=== PATIENT | female | born 1965 | race Two or more races ===

== ENCOUNTER 2025-05-19 21:01 | Inpatient (IN) | payer MEDICAID ==
[~2025-05-19] VITALS: Ht 152.4 cm; Wt 57.0 kg
[~2025-05-19 21:01] MED LIST: LOVA10TA54 PO; METF-372 PO
[2025-05-19 21:45] VITALS: PULSE 80; RESP 15; O2SAT 99
[2025-05-19] MEDS: SODIUM CHLORIDE 0.9% 2,000 ML IV ONE (22:09)
[2025-05-19] MEDS: InsuLIN REG 1unit/0.01ml Soln (100units/ml) IV ONE (22:19)
[2025-05-19 22:21] LABS: Base Excess 3.4 mmol/L (-2.0-3.0)
[2025-05-19 22:29] LABS: Hematocrit 35.5 % (36.0-46.0); Hemoglobin 11.6 g/dL (12.2-16.2); Mean Corpuscular Hemoglobin 29.7 pg (28.0-32.0); Mean Corpuscular Volume 91.0 fL (80.0-100.0); Nucleated Red Blood Cells % 0.1 %
[2025-05-19 22:45] LABS: Alanine Aminotransferase 26 U/L (7-40); Albumin 3.5 g/dL (3.2-4.8); Anion Gap 9 (5-15); BUN/Creatinine Ratio 13.5 (10.0-20.0); Blood Urea Nitrogen 17 mg/dL (9-23); Carbon Dioxide 25 mmol/L (20-31); Potassium 4.3 mmol/L (3.5-5.1); Total Protein 6.6 g/dL (5.7-8.2)
--- NOTE | 2025-05-19 22:49 | ED.PDOC ---
Musculoskeletal HPI Comments 65 y/o F is BIBA from private residence for c/c of 1x week history of worsening left foot pain, with associated redness and swelling. Patient has multiple comorbidities, including DM, HLD, HTN, fatty liver disease, PUD, seizures, hypothyroidism, and alcohol abuse. She reports onset of symptoms after wearing a new pair of shoes a week prior to onset. Unable to bear weight on left foot due to the pain. Patient also reports history of diabetic ulcer wound to the bottom of her foot and not taking any medications for her DM, currently. No chest pain, shortness of breath, fever, chills, or further associated symptoms. Per EMS report, patient was found with 2x initial blood glucose readings of "HI". Chief Complaint: Hyperglycemia Time Seen by MD: 21:50 Primary Care Provider: DR. CERDA Reviewed Notes: Nurses Notes, Process Control Board Operator Notes, Medications, Allergies Allergies: Coded Allergies: NO KNOWN ALLERGIES (Unverified , 01/22/13) Home Meds Reported Medications Lovastatin (Lovastatin) 10 Mg Tab, 10 MG PO QDAC 04/02/13 Metformin Hydrochloride (Metformin Hcl) 1,000 Mg Tab, 1000 MG PO QDAC 04/02/13 Information Source: Patient, Emergency Med Personnel Mode of Arrival: EMS Location: Left Extremity Location: Foot Timing: Hours Prehospital treatment: 12 Lead EKG, Accucheck, Band Attacher Severity: Moderate Able to Move Extremity: Yes Bear Weight: No Pain: Moderate Past Medical History PAST MEDICAL HISTORY: DM, High Lipids, HTN, Liver (fatty and alcohol liver disease ), PUD, Seizures, Thyroid (hypothyroidism ) Past Medical History (Other): thrombocytopenia Surgical History: , 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 Dry mucous membranes.) Neck: Full Range of Motion, Normal Inspection Respiratory: Lungs Clear, No Accessory Muscle Use, No Respiratory Distress, Normal Breath Sounds Cardiovascular: No JVD, Regular Rate/Rhythm Breast Exam: Deferred Gastrointestinal: Non Tender, Soft Genitalia: Deferred Pelvic: Deferred Rectal: Deferred Extremities: Swelling, Tender, Other (Left foot soft tissue tenderness and swelling with patchy erythema. Approximate 8 x 5 cm plantar wound with patchy necrosis and surrounding erythema. No fluctuance or discharge. Subcentimeter scabbed ulcerative lesions on the plantar MTP area and 3rd toe.) Neurologic: Alert (Oriented x4), Other (No gross focal deficit) Cerebellar Function: NOT DONE Reflexes: NOT DONE Skin: Dry, Warm Lymphatic: NOT DONE Was a procedure done? Was a procedure done?: No Differential Diagnosis EXT Differential Diagnosis: Cellulitis, Septic, Other (infected diabetic wound , osteomyelitis) Other Differential Diagnosis hyperglycemia, DKA, hyperosmolar hyperglycemic state, among others X-Ray, Labs, Meds, VS Vital Signs Date Time Temp Pulse Resp B/P (MAP) Pulse Ox O2 Delivery O2 Flow Rate FiO2 05/19/25 23:34 73 14 99/55 (70) 100 05/19/25 22:33 77 05/19/25 21:45 80 15 99 Nasal Cannula* 2 28 05/19/25 21:45 98.2 80 15 104/62 (76) 99 98.2 05/19/25 21:18 99.1 68 22 97/64 98 99.1 Lab Test 05/20/25 01:20 05/19/25 23:10 05/19/25 22:15 05/19/25 22:10 Range/Units Urine Color Colorless Yellow Urine Clarity Clear Clear Urine pH 5.5 5.0-9.0 Urine Specific [place] 1.025 1.001-1.035 Urine Protein Negative Negative Urine Ketones Negative Negative Urine Blood Negative Negative /uL Urine Nitrite Negative Negative Urine Bilirubin Negative Negative Urine Urobilinogen Normal Negative mg/dL Urine Leukocyte Esterase Negative Negative /uL Urine RBC 1 0 - 4 /hpf Urine Microscopic WBC < 1 0-5 /HPF Urine Squamous Epithelial Cells None seen <5 /hpf Urine Bacteria None seen None Seen /hpf Urine Glucose 4+ H Normal mg/dL Troponin I High Sensitivity < 3 L </=34 ng/L POC Glucose > 600 *H 70-106 mg/dl Blood Gas Specimen Type Arterial Blood Gas Sample Site Right radial Blood Gas Patient Temperature 37.0 Arterial Blood Date Drawn [id number] Arterial Blood pH 7.519 H 7.350-7.450 Arterial Blood Partial Pressure CO2 32.5 32.0-45.0 mmHg Arterial Blood Partial Pressure O2 125.7 H 83.0-108.0 mmHg Arterial Blood HCO3 25.9 21.0-28.0 mmol/L Arterial Blood Oxygen Saturation 98.8 H 94.0-98.0 % Arterial Blood Base Excess 3.4 H -2.0-3.0 mmol/L Arterial Blood Oxyhemoglobin 97.4 94.0-98.0 % Arterial Blood Carboxyhemoglobin 0.9 0.5-1.5 % Arterial Blood Methemoglobin 0.5 0.0-1.5 % Vic Test Modified Blood Gas Total Hemoglobin 12.30 12.0-16.0 g/dL Blood Gas Liter Flow 2.00 Blood Gas Modality Nasal cannula FiO2 % 28.0 Test 05/19/25 22:09 Range/Units White Blood Count 12.0 H 4.4-10.8 10^3/uL Red Blood Count 3.90 L 4.0-5.20 10^6/uL Hemoglobin 11.6 L 12.2-16.2 g/dL Hematocrit 35.5 L 36.0-46.0 % Mean Corpuscular Volume 91.0 80.0-100.0 fL Mean Corpuscular Hemoglobin 29.7 28.0-32.0 pg Mean Corpuscular Hemoglobin Concent 32.6 32.0-36.0 g/dL Red Cell Distribution Width 12.9 11.8-14.3 % Platelet Count 261 140-450 10^3/uL Mean Platelet Volume 8.6 6.9-10.8 fL Neutrophils (%) (Auto) 86.9 H 37.0-80.0 % Lymphocytes (%) (Auto) 8.0 L 10.0-50.0 % Monocytes (%) (Auto) 4.4 0.0-12.0 % Eosinophils (%) (Auto) 0.5 0.0-7.0 % Basophils (%) (Auto) 0.2 0.0-2.0 % Neutrophils # (Auto) 10.4 H 1.6-8.6 10 ^3/uL Lymphocytes # (Auto) 1.0 0.4-5.4 10 ^3/uL Monocytes # (Auto) 0.5 0-1.3 10 ^3/uL Eosinophils # (Auto) 0.1 0-0.8 10 ^3/uL Basophils # (Auto) 0 0-0.2 10 ^3/uL Nucleated Red Blood Cells 0.1 % Sodium Level 124 L 136-145 mmol/L Potassium Level 4.3 3.5-5.1 mmol/L Chloride Level 90 L 98-107 mmol/L Carbon Dioxide Level 25 20-31 mmol/L Anion Gap 9 5-15 Blood Urea Nitrogen 17 9-23 mg/dL Creatinine 1.26 H 0.550-1.02 mg/dL Glomerular Filtration Rate Calc 48 >90 mL/min BUN/Creatinine Ratio 13.5 10.0-20.0 Serum Glucose 804 *H 74-106 mg/dL Calcium Level 8.4 L 8.7-10.4 mg/dL Total Bilirubin 0.2 0.2-1.0 mg/dL Aspartate Amino Transferase (AST) 26 13-40 U/L Alanine Aminotransferase (ALT) 26 7-40 U/L Alkaline Phosphatase 252 H 46-116 U/L Troponin I High Sensitivity 4 </=34 ng/L B-Type Natriuretic Peptide 148.99 0-100 pg/mL Total Protein 6.6 5.7-8.2 g/dL Albumin 3.5 3.2-4.8 g/dL Beta-Hydroxybutyric Acid 0.256 < 0.4 mmol/L Current Medications Medications (Trade) Dose Ordered Sig/Sean Route Start Time Stop Time Status Last Admin Sodium Chloride 2,000 ml @ 1,000 mls/hr Q2H ONCE IV 05/19/25 22:00 05/19/25 23:59 DC 05/19/25 22:09 Insulin Human Regular (InsuLIN R) 4 units ONCE ONCE IV 05/19/25 22:00 05/19/25 22:01 DC 05/19/25 22:19 PROCEDURE(s): CXRP - CHEST PORTABLE REASON: hyperglycemia ORDER NUMBER(s): [id number], ACCESSION NUMBER(s): [id number] CHEST RADIOGRAPH Indication: hyperglycemia Technique: 1 view Comparison: None FINDINGS: Lines and Tubes: None Lungs: Focal left basilar nodular/consolidative opacity near the costophrenic angle. Pleura: No effusion or pneumothorax. Cardiomediastinal contours: Unremarkable. Bones: No acute osseous abnormality. IMPRESSION: 1. A small focal left basilar airspace disease may represent summation of structures, early or mild infection, or other etiology suggest pulmonary nodule or rib lesion. EDURE(s): LFOOT - L FOOT 3 VIEW XRAY REASON: cellulitis ORDER NUMBER(s): [id number], ACCESSION NUMBER(s): [id number] EXAM: XY L FOOT 3 VIEW XRAY REASON FOR EXAM: cellulitis TECHNIQUE: AP, lateral, and oblique views of the left foot are submitted for review. COMPARISON: None FINDINGS: There is no acute fracture or dislocation. There is subtle erosion at the ventral medial aspect of the proximal metaphysis of the 2nd proximal phalanx concerning for osteomyelitis. There is severe diffuse soft tissue swelling about the forefoot. IMPRESSION: Diffuse forefoot soft tissue swelling with possible erosion at the base of the 2nd proximal phalanx concerning for osteomyelitis. Recommend MRI of the forefo ot. X-Ray, Labs, Meds, VS Comment 65-year-old female with history of DM, HLD, HTN, fatty liver disease, PUD, seizures, hypothyroidism, and alcohol abuse complaining of left foot pain and found to be hyperglycemic Vitals remarkable for respiratory rate 22 Exam remarkable for Left foot soft tissue tenderness and swelling with patchy erythema. Approximate 8 x 5 cm plantar wound with patchy necrosis and surr ounding erythema. No fluctuance or discharge. Subcentimeter scabbed ulcerative lesions on the plantar MTP area and 3rd toe. Rhythm strip independently interpreted by me: Sinus rhythm, rate 68, no ectopy. Chest x-ray IMPRESSION: 1. A small focal left basilar airspace disease may represent summation of structures, early or mild infection, or other etiology suggest pulmonary nodule or rib lesion. Left foot x-ray IMPRESSION: Diffuse forefoot soft tissue swelling with possible erosion at the base of the 2nd proximal phalanx concerning for osteomyelitis. Recommend MRI of the forefoot. CBC remarkable for WBC 12, metabolic panel remarkable for sodium 124, chloride 90, glucose 804, anion gap normal, beta hydroxybutyrate normal, UA positive for glucose Patient treated with the following in the ED: 1 L 0.9 normal saline IV bolus, regular insulin 4 units IV, started on insulin drip protocol, 30 cc/kilogram LR bolus, cefepime 2 g IV, vancomycin per pharmacy IV On re-evaluation, blood glucose is still greater than 600. Patient is resting comfortably with otherwise stable vitals. Plan is to admit the patient for IV antibiotics, glucose control, foot MRI to rule out osteomyelitis. Time of 1ST Reevaluation: 22:20 Reevaluation 1ST: Unchanged Patient Education/Counseling: Diagnosis, Treatment, Other (need for admission ) Family Education/Counseling: No Family Present Departure 1 Departure Time of Disposition: 02:30 Impression: Primary Impression: Hyperglycemia Additional Impression: Cellulitis of left foot Disposition: 09 ADMITTED INPATIENT Admit to: Tele Condition: Guarded Critical Care Note Critical Care Time?: Yes (45 min-critical care time only) Critical care comment: Critical care time including multiple bedside re-evaluations, review of lab and imaging studies, and discussion of the case with the admitting provider. Patient is high risk for metabolic decompensation. Stability Stability form required: No Heart Score Heart Score: Heart Score Response (Comments) Value History N/A 0 EKG N/A 0 Age N/A 0 Risk Factors N/A 0 Troponin N/A 0 Total 0 I personally scribed for ERICH DOUGLAS MD ([email or web address]) on 05/19/25 at 22:49. Electronically submitted by Fransisco Moffett ([email or web address]). I personally scribed for ERICH DOUGLAS MD ([email or web address]) on 05/19/25 at 23:07. Electronically submitted by Fransisco Moffett ([email or web address]). ERICH DOUGLAS MD May 19, 2025 22:49
[2025-05-19 22:54] LABS: Alkaline Phosphatase 252 U/L (46-116); Bilirubin, Total 0.2 mg/dL (0.2-1.0); Calcium 8.4 mg/dL (8.7-10.4); Chloride 90 mmol/L (98-107); Sodium 124 mmol/L (136-145)
[2025-05-19 22:56] LABS: Glucose 804 mg/dL (74-106)
--- NOTE | 2025-05-19 23:41 | DVH ---
EXAM: XY L FOOT 3 VIEW XRAY REASON FOR EXAM: cellulitis TECHNIQUE: AP, lateral, and oblique views of the left foot are submitted for review. COMPARISON: None FINDINGS: There is no acute fracture or dislocation. There is subtle erosion at the ventral medial as pect of the proximal metaphysis of the 2nd proximal phalanx concerning for osteomyelitis. There is se cody diffuse soft tissue swelling about the forefoot. IMPRESSION: Diffuse forefoot soft tissue swelling with possible erosion at the base of the 2nd proximal phalanx c oncerning for osteomyelitis. Recommend MRI of the forefoot.
--- NOTE | 2025-05-19 23:41 | DVH ---
CHEST RADIOGRAPH Indication: hyperglycemia Technique: 1 view Comparison: None FINDINGS: Lines and Tubes: None Lungs: Focal left basilar nodular/consolidative opacity near the costophrenic angle. Pleura: No effusion or pneumothorax. Cardiomediastinal contours: Unremarkable. Bones: No acute osseous abnormality. IMPRESSION: 1. A small focal left basilar airspace disease may represent summation of structures, early or mild i nfection, or other etiology suggest pulmonary nodule or rib lesion.
[2025-05-20 02:30] LABS: Urine Protein, UAD Negative (Negative)
[2025-05-20] MEDS ORDERED: DEXTROSE (50%) 50ML SYRG IV PRN ×3 (03:15→09:00)
[2025-05-20] MEDS ORDERED: INSULIN DRIP 100 UNIT/100ML 100 ML IV SCH (03:15)
--- NOTE | 2025-05-20 03:25 | DVHHPRES ---
History of Present Illness Resident Creating Document: ETHAN GRUBER RESIDENT History of Present Illness 62-year-old female with uncontrolled diabetes mellitus, seizure disorder, hypertension, scoliosis presents to the ER with excruciating back and left foot pain. She reports having a swelling on the left food since last 1 week. She was not able to pass urine, and a Valenzuela catheter was placed in the hospital which relieved her urine retention. The patient feels like dying out of pain. She denies any chest pain, shortness of breath, fever, abdominal pain or any other complaints. The unbearable pain was impairing patient's ability to provide detailed history. Past medical history: Hypertension, diabetes mellitus, scoliosis, seizure disorder Past surgical history: Abdominal surgery due to stomach ulcers, surgery in the under arm Alcohol: Beer and vodka in the past Smoke: Never Drug abuse: Never Medications: Insulin for diabetes, could not recall the antihypertensive drug Allergies: None Code status: Full code PCP:? Review of Systems Review of Systems Patient was seen and examined at the bedside. Patient reports back pain and left foot pain, no other complaints reported. Rest of the ROS is negative. Allergies: Coded Allergies: NO KNOWN ALLERGIES (Unverified , 01/22/13) Medications Current Medications Medications Dose Ordered Sig/Sean Route Start Time Stop Time Status Last Admin Dose Admin Insulin Human (Reg)/Sodium Chloride 100 ml @ 0.5 mls/hr Q24H IV 05/20/25 03:15 Diagnostic Test (Pha) 1 strip Q90MIN 05/20/25 04:30 Dextrose 50 ml PRN PRN IV 05/20/25 03:15 Cefepime HCl 50 ml @ 12.5 mls/hr Q8HR IV 05/20/25 06:00 Exam Vital Signs Vital Signs Date Time Temp Pulse Resp B/P (MAP) Pulse Ox O2 Delivery O2 Flow Rate FiO2 05/19/25 23:34 73 14 99/55 (70) 100 05/19/25 21:45 Nasal Cannula* 2 28 05/19/25 21:45 98.2 98.2 Exam Pt is lying on bed General Appearance: Alert, Oriented X3, Cooperative, Mild distress HEENT: Atraumatic, Mucous membranes moist/pink Respiratory: Clear to auscultation, Normal air movement, No added sounds Cardiovascular: Regular rate, Normal S1, Normal S2, No murmurs Abdominal/ : Active bowel sounds, Soft, no distention, no tenderness Extremities: Left foot swelling with redness and blister on the great toe, Normal pulses, No tenderness/swelling Skin: No Significant rash, except past surgical scars Neuro: Normal speech, sensorimotor deficits none Psych/Mental Status: Mental status NL, Mood NL Nurse was there as neon electrician during examination Labs/Xrays Labs Test 05/20/25 01:20 05/19/25 23:10 05/19/25 22:15 05/19/25 22:10 Range/Units Urine Color Colorless Yellow Urine Clarity Clear Clear Urine pH 5.5 5.0-9.0 Urine Specific [place] 1.025 1.001-1.035 Urine Protein Negative Negative Urine Ketones Negative Negative Urine Blood Negative Negative /uL Urine Nitrite Negative Negative Urine Bilirubin Negative Negative Urine Urobilinogen Normal Negative mg/dL Urine Leukocyte Esterase Negative Negative /uL Urine RBC 1 0 - 4 /hpf Urine Microscopic WBC < 1 0-5 /HPF Urine Squamous Epithelial Cells None seen <5 /hpf Urine Bacteria None seen None Seen /hpf Urine Glucose 4+ H Normal mg/dL Troponin I High Sensitivity < 3 L </=34 ng/L POC Glucose > 600 *H 70-106 mg/dl Blood Gas Specimen Type Arterial Blood Gas Sample Site Right radial Blood Gas Patient Temperature 37.0 Arterial Blood Date Drawn [id number] Arterial Blood pH 7.519 H 7.350-7.450 Arterial Blood Partial Pressure CO2 32.5 32.0-45.0 mmHg Arterial Blood Partial Pressure O2 125.7 H 83.0-108.0 mmHg Arterial Blood HCO3 25.9 21.0-28.0 mmol/L Arterial Blood Oxygen Saturation 98.8 H 94.0-98.0 % Arterial Blood Base Excess 3.4 H -2.0-3.0 mmol/L Arterial Blood Oxyhemoglobin 97.4 94.0-98.0 % Arterial Blood Carboxyhemoglobin 0.9 0.5-1.5 % Arterial Blood Methemoglobin 0.5 0.0-1.5 % Vic Test Modified Blood Gas Total Hemoglobin 12.30 12.0-16.0 g/dL Blood Gas Liter Flow 2.00 Blood Gas Modality Nasal cannula FiO2 % 28.0 Test 05/19/25 22:09 Range/Units White Blood Count 12.0 H 4.4-10.8 10^3/uL Red Blood Count 3.90 L 4.0-5.20 10^6/uL Hemoglobin 11.6 L 12.2-16.2 g/dL Hematocrit 35.5 L 36.0-46.0 % Mean Corpuscular Volume 91.0 80.0-100.0 fL Mean Corpuscular Hemoglobin 29.7 28.0-32.0 pg Mean Corpuscular Hemoglobin Concent 32.6 32.0-36.0 g/dL Red Cell Distribution Width 12.9 11.8-14.3 % Platelet Count 261 140-450 10^3/uL Mean Platelet Volume 8.6 6.9-10.8 fL Neutrophils (%) (Auto) 86.9 H 37.0-80.0 % Lymphocytes (%) (Auto) 8.0 L 10.0-50.0 % Monocytes (%) (Auto) 4.4 0.0-12.0 % Eosinophils (%) (Auto) 0.5 0.0-7.0 % Basophils (%) (Auto) 0.2 0.0-2.0 % Neutrophils # (Auto) 10.4 H 1.6-8.6 10 ^3/uL Lymphocytes # (Auto) 1.0 0.4-5.4 10 ^3/uL Monocytes # (Auto) 0.5 0-1.3 10 ^3/uL Eosinophils # (Auto) 0.1 0-0.8 10 ^3/uL Basophils # (Auto) 0 0-0.2 10 ^3/uL Nucleated Red Blood Cells 0.1 % Sodium Level 124 L 136-145 mmol/L Potassium Level 4.3 3.5-5.1 mmol/L Chloride Level 90 L 98-107 mmol/L Carbon Dioxide Level 25 20-31 mmol/L Anion Gap 9 5-15 Blood Urea Nitrogen 17 9-23 mg/dL Creatinine 1.26 H 0.550-1.02 mg/dL Glomerular Filtration Rate Calc 48 >90 mL/min BUN/Creatinine Ratio 13.5 10.0-20.0 Serum Glucose 804 *H 74-106 mg/dL Calcium Level 8.4 L 8.7-10.4 mg/dL Total Bilirubin 0.2 0.2-1.0 mg/dL Aspartate Amino Transferase (AST) 26 13-40 U/L Alanine Aminotransferase (ALT) 26 7-40 U/L Alkaline Phosphatase 252 H 46-116 U/L B-Type Natriuretic Peptide 148.99 0-100 pg/mL Total Protein 6.6 5.7-8.2 g/dL Albumin 3.5 3.2-4.8 g/dL Beta-Hydroxybutyric Acid 0.256 < 0.4 mmol/L SEPSIS Sepsis Screen Date sepsis recognized/suspect: May 19, 2025 Time Sepsis recognized/suspect: 2148 Recent Procedure: No On Antibiotic Therapy: No Respiratory Rate >20: No Heart Rate >90: No Temp<36 C (96.8 F) or >38.3 C: No SBP <90 or MAP <65 mmHG: No New Acute Mental Status Change: No Is the patient on CPAP, BIPAP,: No Physician Orders Chest Portable (05/19/25 21:56) Electrocardigram (05/19/25 21:56) L Foot 3 View Xray (05/19/25 21:56) Abg W/ Co-Ox (05/19/25 21:56) Valenzuela Catheters (05/20/25 ) Admit (05/20/25 02:54) Allergies (05/20/25 02:54) Code Status (05/20/25 02:54) Stat Ekg For Chest Pain (05/20/25 02:54) Notify Md Of Changes From Base (05/20/25 02:54) Insulin Drip 100 Unit/100ml (Myxredlin 1 (05/20/25 03:15) Glucose Blood (Accu-Chek Comfort Curve T (05/20/25 04:30) Insulin Drip Protocol (05/20/25 03:09) Dextrose 50% Syringe (05/20/25 03:15) Urinalysis (05/20/25 03:16) Accucheck (05/20/25 03:16) Lactated Ringer's (05/20/25 03:30) Blood Culture (05/20/25 03:16) Vancomycin 1gm/200ml Pm (05/20/25 03:30) Lactic Acid W/ Reflex Order (05/20/25 04:00) Cefepime 1gm/ 50ml (Maxipime 1gm/50ml) (05/20/25 06:00) Notify Md If Map <65 Or Bp<90 (05/20/25 03:16) If Map<65 Start Vasopressor (05/20/25 03:16) Sepsis Reassesment After Fluid (05/20/25 04:16) Hydrocodone-Acet 5/325mg Tab ([place] 5/ (05/20/25 03:30) Hydrocodone-Acet 5/325mg Tab ([place] 5/32 (05/20/25 03:30) Vital Signs Date Time Temp Pulse Resp B/P (MAP) Pulse Ox O2 Delivery O2 Flow Rate FiO2 05/19/25 23:34 73 14 99/55 (70) 100 05/19/25 22:33 77 05/19/25 21:45 80 15 99 Nasal Cannula* 2 28 05/19/25 21:45 98.2 80 15 104/62 (76) 99 98.2 05/19/25 21:18 99.1 68 22 97/64 98 99.1 Laboratory Tests Test 05/19/25 22:09 White Blood Count 12.0 10^3/uL (4.4-10.8) H Medications Medications Dose Ordered Sig/Sean Route Start Time Stop Time Status Last Admin Dose Admin Insulin Human Regular 4 units ONCE ONCE IV 05/19/25 22:00 05/19/25 22:01 DC 05/19/25 22:19 4 UNITS Sodium Chloride 2,000 ml @ 1,000 mls/hr Q2H ONCE IV 05/19/25 22:00 05/19/25 23:59 DC 05/19/25 22:09 1,000 MLS/HR Assessment/Plan Assessment/Plan Uncontrolled diabetes mellitus glucose 804, anion gap normal,beta hydroxybutyrate normal, UA positive for glucose Moderate insulin sliding scale Lantus 10 units subcutaneous Left Foot pain due to cellulitis WBC 12 X-ray left foot three-view: Cellulitis. There is no acute fracture or dislocation. There is subtle erosion at the ventral medial aspect of the proximal metaphysis of the 2nd proximal phalanx concerning for osteomyelitis. There is severe diffuse soft tissue swelling about the forefoot. Diffuse forefoot soft tissue swelling with possible erosion at the base of the 2nd proximal phalanx concerning for osteomyelitis. Recommend MRI of the forefoot. IV fluid [place] p.r.n. added Cefepime and vancomycin Pulmonary nodule- chest x-ray: A small focal left basilar airspace disease may represent summation of structures, early or mild infection, or other etiology suggest pulmonary nodule or rib lesion. Consult pulmonology GI prophylaxis: Not indicated DVT prophylaxis: Not indicated Diet: Diabetic Goals of care discussed with the patient for more than 27 minutes: Full code status Case discussed with Dr. Thomas , patient and RN Plan discussed with: Patient, Other My Orders Orders - ETHAN GRUBER RESIDENT Procedure Category Date Status Time Admit ADMIT 05/20/25 Transmitted 02:54 Allergies JOHAN 05/20/25 In Process 02:54 Code Status CODE 05/20/25 Transmitted 02:54 Stat Ekg For Chest JOHAN 05/20/25 In Process Pain 02:54 Notify Md Of Changes JOHAN 05/20/25 In Process From Base 02:54 Hydrocodone-Acet PHA 05/20/25 Verified 5/325mg Tab ([place] 03:30 Hydrocodone-Acet PHA 05/20/25 Verified 5/325mg Tab ([place] 03:30 Common Visit Codes: 38090-PSYBWTD INP/OBS CARE (HIGH) Secondary Visit Codes: 98421-[id number] CARE PLAN 30 MINUTES ETHAN GRUBER May 20, 2025 03:25
[2025-05-20] MEDS: LACTATED RINGER'S 1,350 ML IV ONE (03:53)
[2025-05-20] MEDS: VANCOMYCIN 1GM/200ML PM 200 ML IV ONE (03:58)
[2025-05-20] MEDS: HYDROcodone-ACET 5/325MG TAB PO ONE (04:03)
[2025-05-20] MEDS ORDERED: ACCU-CHEK COMFORT CURVE STRIP VI SCH ×2 (04:30→12:00)
[2025-05-20] MEDS: InsuLIN REG 1unit/0.01ml Soln (100units/ml) IV ONE (04:42)
[2025-05-20] MEDS: CEFEPIME 1GM/ 50ML 50 ML IV SCH (05:34)
[2025-05-20] MEDS ORDERED: INSULIN LANTUS (GLARGINE) 1 /0.01ml (100units/ml) SC SCH (07:00)
[2025-05-20] MEDS: ACCU-CHEK COMFORT CURVE STRIP VI SCH (08:00)
--- NOTE | 2025-05-20 08:07 | ECG ---
[facility] Test Date: 2025-05-19 Test Time: 22:33:02 Pat Name: DEB BUCKLEY Department: ED Room: 0246 Gender: F [employer] Grade Teacher: NOEMI : 1965 Requested By: ERICH ROBERTSON Order Number: [id number] Reading MD: Brian Moctezuma Measurements Intervals [place] Rate: 77 P: 70 MT: 138 QRS: 75 QRSD: 85 T: 84 QT: 369 QTc: 418 Interpretive Statements Sinus rhythm Low voltage, precordial leads Electronically Signed On 05-20-2025 22:09:19 PDT by Brian Moctezuma Please click the below link to view image of tracing.
[2025-05-20] MEDS: LACTATED RINGER'S 500 ML IV ONE (08:30)
--- NOTE | 2025-05-20 08:30 | DVHPNRES ---
Progress Note Date Seen: May 20, 2025 Resident Creating Document: ELI VILLANUEVA RESIDENT Medical Necessity Reason Pt with a Central, PICC or Fol: No Subjective Review of Systems Dayana Juarez is a 65-year-old female with past medical history of diabetes, scoliosis, depression, hypothyroidism, presented to the ER with chief complain of pain in left foot. She reported the pain started last week when she started wearing a new pair of shoes. The pain continued to worsen, making it difficult for her to move around. She saw her wound worsening yesterday which urged her visit to ER. She reports not being compliant on insulin. PMHx: Diabetes, scoliosis, depression, hypothyroidism PSHx: Left thumb reconstruction, cesareans, hernia repair Social history: Reports alcohol use occasionally. No recreational drug use. Lives with mother. Uses a walker or cane for ambulation. Home medication: Claritin tablet, omega-3, methocarbamol, fluoxetine, levothyroxine, insulin Lantus, pregabalin. Reports noncompliance on insulin, has not been taking levothyroxine. ROS: Constitutional: Reports 70 lb weight loss in the last year. Denies fever and chills. HEENT: Denies changes in vision and hearing. Respiratory: Denies shortness of breath and cough Cardiovascular: Denies chest discomfort or palpitations GI: Denies abdominal pain, nausea, vomiting and diarrhea. : Denies dysuria and urinary frequency. Musculoskeletal: Complains of pain in left foot, associated wound Skin: Complains of pruritus. Neurological: Denies dizziness, headache, vision or hearing problems Other: Scoliosis associated pain in the posterior trunk She was examined at bedside today. Vitals show Hypotension. Continues to complain of pain in her left lower extremity. She appeared anxious and tearful. Objective vital signs Vital Sign Date Time Temp Pulse Resp B/P (MAP) Pulse Ox O2 Delivery O2 Flow Rate FiO2 05/20/25 05:00 98.0 61 12 96/55 (69) 99 98.0 05/19/25 21:45 Nasal Cannula* 2 28 Total Intake and Output 05/19/25 05/19/25 05/20/25 15:00 23:00 07:00 Output Total 800 ml Balance -800 ml medications Current Medications Medications Dose Ordered Sig/Sean Route Start Time Stop Time Status Last Admin Dose Admin Cefepime HCl 50 ml @ 12.5 mls/hr Q8HR IV 05/20/25 06:00 05/20/25 05:34 12.5 MLS/HR Acetaminophen/ Hydrocodone Bitart 1 tab Q4HPRN PRN PO 05/20/25 03:30 Diagnostic Test (Pha) 1 strip IQ4HR 05/20/25 08:00 Insulin Human Regular IQ4HR SC 05/20/25 08:00 Dextrose 50 ml UD PRN IV 05/20/25 04:45 Examination General: Patient alert and oriented in person, place and time. Patient following commands. HEENT: Normocephalic, atraumatic, moist mucous membranes Respiratory/pulmonary: Scoliosis, pain with palpation of the posterior trunk. C lear lungs bilaterally, vesicular murmurs present in almost all lung moreno, no associated crackles or wheezes. Cardiovascular: Normal heart sounds S1 and S2 with no associated murmurs Abdomen: Abdomen nondistended, there is no pain to palpation in any of the abdominal quadrants, no palpable masses. Extremities: Inspection of left foot plantar surface shows erythematous lesion with purulence of approximately 6 X 3 cm. Increased temperature to touch, tenderness extending from plantar surface of foot up to the knee. Peripheral Pulses: 3+ Radial (R). 3+ Radial (L). 3+ Dorsalis pedis (R). 3+ Dorsalis pedis(L) Skin: Multiple erythematous lesions on extremities, face, trunk. Multiple Scab wounds present on bilateral lower extremities. Neurological: Intact cranial nerves with no focal neurologic deficits laboratory and microbiology Laboratory Tests 05/19/25 22:09 Test 05/19/25 22:09 Range/Units Serum Glucose 804 *H 74-106 mg/dL Problem List/Assessment/Plan Problem List/Assessment/Plan Sepsis present on admission, due to wound with abscess on plantar surface of the left foot Cellulitis with purulence of left foot, possible Plantar wound with abscess on left foot, possible Diabetic foot ulcer, possible Neutrophilic leukocytosis Hypotension Labs showed WBC 12 K X-ray foot shows: Diffuse forefoot soft tissue swelling with possible erosion at the base of the 2nd proximal phalanx concerning for osteomyelitis. Recommend MRI of the forefoot. CXR shows: A small focal left basilar airspace disease may represent summation of structures, early or mild infection, or other etiology suggest pulmonary nodule or rib lesion. LR bolus administered Pain management Started on cefepime, vancomycin. MRI left foot revealed: Wound of the plantar aspect of the forefoot with adjacent fluid collection, possible abscess. No evidence for osteomyelitis. Surgery consulted, planed I and D. We will follow up with wound culture. Uncontrolled, insulin-dependent Diabetes mellitus Hyperglycemia Medication noncompliance Glucose 804 on admission, 377 now, normal ketones Started sliding scale insulin and basal bolus insulin regimen Long discussion on addressing factors relating to noncompliance Normocytic, normochromic anemia, unspecified Hemoglobin 11.6 Hypocalcemia Hyponatremia Hypochloremia Respiratory alkalosis, possible ABG 7.5, pCO2 of 32.5 Diabetic nephropathy, possible Elevated creatinine, 1.26 DIET: NPO CODE STATUS: Goals of care discussed with patient at bedside for more than 35 minutes. Full code DISPOSITION: ER bed 9 Patient's status and plan discussed with the patient. Case discussed with Dr. Vinson. Plan discussed with: Patient My Orders My Orders Orders - ELI VILLANUEVA Procedure Category Date Status Time Lactated Ringer's PHA 05/20/25 Logged 08:30 Date of Service: May 26, 2025 Billing Provider: ALEE VINSON MD Common Visit Codes: [id number] INP/OBS CARE(HIGH) ELI VILLANUEVA RESIDENT May 20, 2025 08:30 ALEE VINSON MD May 26, 2025 19:35
[2025-05-20] MEDS: LACTATED RINGER'S 1,000 ML IV SCH (09:00)
[2025-05-20] MEDS ORDERED: VANCOMYCIN PER PHARMACY 0 MG IV SCH (09:00)
[2025-05-20] MEDS: InsuLIN REG 1unit/0.01ml Soln (100units/ml) SC SCH (09:10)
[2025-05-20] MEDS: INSULIN LANTUS (GLARGINE) 1 /0.01ml (100units/ml) SC SCH (09:20)
[2025-05-20 09:42] LABS: INR 1.04 (0.9-1.15); Prothrombin Time 11.0 sec (9.3-11.8)
[2025-05-20 10:12] LABS: Hematocrit 36.5 % (36.0-46.0); Hemoglobin 12.2 g/dL (12.2-16.2); Mean Corpuscular Hemoglobin 29.7 pg (28.0-32.0); Mean Corpuscular Volume 88.9 fL (80.0-100.0); Nucleated Red Blood Cells % 0.0 %
[2025-05-20 10:26] LABS: Alanine Aminotransferase 27 U/L (7-40); Albumin 3.6 g/dL (3.2-4.8); Anion Gap 9 (5-15); BUN/Creatinine Ratio 13.5 (10.0-20.0); Blood Urea Nitrogen 14 mg/dL (9-23); Calcium 8.7 mg/dL (8.7-10.4); Carbon Dioxide 28 mmol/L (20-31); Chloride 100 mmol/L (98-107); Potassium 4.3 mmol/L (3.5-5.1); Sodium 137 mmol/L (136-145); Total Protein 6.7 g/dL (5.7-8.2)
[2025-05-20] MEDS: PREGABALIN CAPSULE 75 MG CAP PO SCH (10:26)
[2025-05-20] MEDS: LORATADINE 10 MG TAB PO SCH (10:26)
[2025-05-20 10:29] LABS: Alkaline Phosphatase 236 U/L (46-116); Bilirubin, Total 0.2 mg/dL (0.2-1.0); Glucose 351 mg/dL (74-106)
--- NOTE | 2025-05-20 11:49 | DVH ---
CLINICAL HISTORY: 65 years old, Female; High suspicion of ostemomyelitis with sepsis. TECHNIQUE: Multi sequence multi planar MRI images of the left foot were obtained without IV contrast . COMPARISON: XY L FOOT 3 VIEW XRAY on DOS: 05/19/25 FINDINGS: Motion artifact limits evaluation. There is a wound at the plantar aspect of the forefoot with adjacent Moderate subcutaneous edema. A fluid collection adjacent to the skin surface of the lelo ntar aspect of the forefoot near the level of the distal 2nd through 4th metatarsals, measuring up to 4.6 x 1.5 x 2.9 cm, suspected abscess, although limited evaluation for abscess on noncontrast enhanc ed exam. There is no evidence for osteomyelitis. Linear signal abnormality in the plantar aspect of t he forefoot near the wound (series 6, image 11), for which foreign body can not be excluded. IMPRESSION: 1. Wound of the plantar aspect of the forefoot with adjacent fluid collection, possible abscess. Robb ited evaluation for abscess on noncontrast enhanced exam. Correlate with clinical findings. 2. No evidence for osteomyelitis. 3. Linear signal abnormality in the plantar aspect of the forefoot. Foreign body not excluded. Poss ibly correlating with a linear density seen on prior radiographs near this location. Correlate with c linical findings. Ultrasound may be helpful to evaluate for foreign body if clinically indicated.
[2025-05-20] MEDS ORDERED: InsuLIN REG 1unit/0.01ml Soln (100units/ml) SC SCH (12:00)
[2025-05-20 12:38] LABS: Amphetamine Screen, Urine Neg (NEGATIVE); Barbiturate Scree,Urine Neg (NEGATIVE); Benzodiazephine Screen, Urine Neg (NEGATIVE); Cannabinoid Screen, Urine Neg (NEGATIVE); Cocaine Screen, Urine Neg (NEGATIVE); Opiate Scree,Urine Neg (NEGATIVE); Phencyclidine Screen, Urine Neg (NEGATIVE)
--- NOTE | 2025-05-20 13:21 | DVHINCON2 ---
Date Seen: May 20, 2025 Reason for Consultation Left foot abscess History of Present Illness 62-year-old female with uncontrolled diabetes mellitus, seizure disorder, hypertension, scoliosis presents to the ER with excruciating back and left foot pain. She reports having a swelling on the left food since last 1 week. She was not able to pass urine, and a Valenzuela catheter was placed in the hospital which relieved her urine retention. The patient feels like dying out of pain. She denies any chest pain, shortness of breath, fever, abdominal pain or any other complaints. The unbearable pain was impairing patient's ability to provide detailed history. Past Medical History See H&P Past Surgical History See H&P Allergies: Coded Allergies: NO KNOWN ALLERGIES (Unverified , 01/22/13) Home Meds Reported Medications Lovastatin (Lovastatin) 10 Mg Tab, 10 MG PO QDAC 04/02/13 Metformin Hydrochloride (Metformin Hcl) 1,000 Mg Tab, 1000 MG PO QDAC 04/02/13 Current Medications Current Medications Medications (Trade) Dose Ordered Sig/Sean Route PRN Reason Start Time Stop Time Status Last Admin Insulin Human (Reg)/Sodium Chloride 100 ml @ 0.5 mls/hr Q24H IV 05/20/25 03:15 05/20/25 04:32 DC Diagnostic Test (Pha) (Accu-Chek Comfort Curve T) 1 strip Q90MIN 05/20/25 04:30 05/20/25 04:32 DC Dextrose 50 ml PRN PRN IV BG LESS Than 70 AND CALL MD 05/20/25 03:15 05/20/25 04:32 DC Cefepime HCl 50 ml @ 12.5 mls/hr Q8HR IV 05/20/25 06:00 05/20/25 05:34 Acetaminophen/ Hydrocodone Bitart ([place] 5/325MG Tab) 1 tab Q4HPRN PRN PO SEVERE PAIN (7-10 PAIN SCALE) 05/20/25 03:30 Insulin Glargine (Lantus) 10 units QAM SC 05/20/25 07:00 05/20/25 04:32 DC Diagnostic Test (Pha) (Accu-Chek Comfort Curve T) 1 strip IQ4HR 05/20/25 08:00 05/20/25 12:25 Insulin Human Regular (InsuLIN R) IQ4HR SC 05/20/25 08:00 05/20/25 12:32 Dextrose 50 ml UD PRN IV Blood Sugar LESS THAN 60 05/20/25 04:45 Lactated Ringer's 1,000 ml @ 125 mls/hr Q8H IV 05/20/25 09:00 05/20/25 09:00 Vancomycin HCl 0 ml @ 0 mls/hr UD IV 05/20/25 09:00 Loratadine (Claritin Tablet) 10 mg DAILY PO 05/20/25 10:00 05/20/25 10:26 Fluoxetine HCl (PROzac CAPSULE) 20 mg DAILY PO 05/20/25 10:00 05/20/25 10:26 Pregabalin (Lyrica Capsule) 75 mg BID PO 05/20/25 10:00 05/20/25 10:26 Insulin Glargine (Lantus) 20 units HS NJ 05/20/25 09:00 05/20/25 09:20 Diagnostic Test (Pha) (Accu-Chek Comfort Curve T) 1 strip Q6HR 05/20/25 12:00 Cancel Insulin Human Regular (InsuLIN R) Q6HR NJ 05/20/25 12:00 Cancel Dextrose 50 ml UD PRN IV Blood Sugar LESS THAN 60 05/20/25 09:00 Cancel Levothyroxine Sodium (Synthroid Tablet) 75 mcg QAM@0600 PO 05/21/25 06:00 Vital Signs Vital Signs Date Time Temp Pulse Resp B/P (MAP) Pulse Ox O2 Delivery O2 Flow Rate FiO2 05/20/25 12:00 69 16 119/57 (77) 98 05/20/25 08:00 97.8 97.8 05/20/25 08:00 Room Air* 0 21 Physical Exam Dermatological: Skin is dry with mild erythema and some maceration around the wound site No gross deformities noted Mild non-pitting edema present bilaterally Fluctuance in the plantar midfoot left foot Vascular: Dorsalis pedis and posterior tibial pulses are 1+ bilaterally Capillary refill is under 2 seconds Skin temperature is warm bilaterally Neurologic: Protective sensation is absent on the plantar forefoot bilaterally Monofilament testing reveals decreased sensation in multiple plantar sites Musculoskeletal: Range of motion at the ankle and MTP joints is within normal limits. Strength is 5/5 in all tested muscle groups. Gait is antalgic due to offloading of the affected limb. Labs/Diagnostic Data Labs Test 05/20/25 12:11 05/20/25 09:09 05/20/25 01:20 05/19/25 23:10 Range/Units POC Glucose 274 H 70-106 mg/dl White Blood Count 9.7 4.4-10.8 10^3/uL Red Blood Count 4.11 4.0-5.20 10^6/uL Hemoglobin 12.2 12.2-16.2 g/dL Hematocrit 36.5 36.0-46.0 % Mean Corpuscular Volume 88.9 80.0-100.0 fL Mean Corpuscular Hemoglobin 29.7 28.0-32.0 pg Mean Corpuscular Hemoglobin Concent 33.5 32.0-36.0 g/dL Red Cell Distribution Width 12.9 11.8-14.3 % Platelet Count 301 140-450 10^3/uL Mean Platelet Volume 8.0 6.9-10.8 fL Neutrophils (%) (Auto) 77.8 37.0-80.0 % Lymphocytes (%) (Auto) 16.2 10.0-50.0 % Monocytes (%) (Auto) 4.3 0.0-12.0 % Eosinophils (%) (Auto) 1.1 0.0-7.0 % Basophils (%) (Auto) 0.6 0.0-2.0 % Neutrophils # (Auto) 7.6 1.6-8.6 10 ^3/uL Lymphocytes # (Auto) 1.6 0.4-5.4 10 ^3/uL Monocytes # (Auto) 0.4 0-1.3 10 ^3/uL Eosinophils # (Auto) 0.1 0-0.8 10 ^3/uL Basophils # (Auto) 0.1 0-0.2 10 ^3/uL Nucleated Red Blood Cells 0.0 % Erythrocyte Sedimentation Rate 87 H 0-20 mm/hr Prothrombin Time 11.0 9.3-11.8 sec Prothrombin Time INR 1.04 0.9-1.15 Sodium Level 137 # 136-145 mmol/L Potassium Level 4.3 3.5-5.1 mmol/L Chloride Level 100 # 98-107 mmol/L Carbon Dioxide Level 28 20-31 mmol/L Anion Gap 9 5-15 Blood Urea Nitrogen 14 9-23 mg/dL Creatinine 1.04 H 0.550-1.02 mg/dL Glomerular Filtration Rate Calc 60 >90 mL/min BUN/Creatinine Ratio 13.5 10.0-20.0 Serum Glucose 351 H 74-106 mg/dL Hemoglobin A1c > 14.0 H <5.7 % A1C Calcium Level 8.7 8.7-10.4 mg/dL Total Bilirubin 0.2 0.2-1.0 mg/dL Aspartate Amino Transferase (AST) 22 13-40 U/L Alanine Aminotransferase (ALT) 27 7-40 U/L Alkaline Phosphatase 236 H 46-116 U/L C-Reactive Protein High Sensitivity 9.91 H <1.0 mg/dL Total Protein 6.7 5.7-8.2 g/dL Albumin 3.6 3.2-4.8 g/dL Thyroid Stimulating Hormone (TSH) 3.67 0.55-4.78 uIU/mL Urine Opiates Screen Neg NEGATIVE Urine Fentanyl Screen Neg NEGATIVE Urine Barbiturates Screen Neg NEGATIVE Urine Phencyclidine Screen Neg NEGATIVE Urine Amphetamines Screen Neg NEGATIVE Urine Benzodiazepines Screen Neg NEGATIVE Urine Cocaine Screen Neg NEGATIVE Urine Cannabinoids Screen Neg NEGATIVE Plasma/Serum Blood Alcohol < 3.0 <10 mg/dL Urine Color Colorless Yellow Urine Clarity Clear Clear Urine pH 5.5 5.0-9.0 Urine Specific [place] 1.025 1.001-1.035 Urine Protein Negative Negative Urine Ketones Negative Negative Urine Blood Negative Negative /uL Urine Nitrite Negative Negative Urine Bilirubin Negative Negative Urine Urobilinogen Normal Negative mg/dL Urine Leukocyte Esterase Negative Negative /uL Urine RBC 1 0 - 4 /hpf Urine Microscopic WBC < 1 0-5 /HPF Urine Squamous Epithelial Cells None seen <5 /hpf Urine Bacteria None seen None Seen /hpf Urine Glucose 4+ H Normal mg/dL Troponin I High Sensitivity < 3 L </=34 ng/L Test 05/19/25 22:10 05/19/25 22:09 Range/Units Blood Gas Specimen Type Arterial Blood Gas Sample Site Right radial Blood Gas Patient Temperature 37.0 Arterial Blood Date Drawn [id number] Arterial Blood pH 7.519 H 7.350-7.450 Arterial Blood Partial Pressure CO2 32.5 32.0-45.0 mmHg Arterial Blood Partial Pressure O2 125.7 H 83.0-108.0 mmHg Arterial Blood HCO3 25.9 21.0-28.0 mmol/L Arterial Blood Oxygen Saturation 98.8 H 94.0-98.0 % Arterial Blood Base Excess 3.4 H -2.0-3.0 mmol/L Arterial Blood Oxyhemoglobin 97.4 94.0-98.0 % Arterial Blood Carboxyhemoglobin 0.9 0.5-1.5 % Arterial Blood Methemoglobin 0.5 0.0-1.5 % Vic Test Modified Blood Gas Total Hemoglobin 12.30 12.0-16.0 g/dL Blood Gas Liter Flow 2.00 Blood Gas Modality Nasal cannula FiO2 % 28.0 Lactic Acid Level 1.4 0.4-2.0 mmol/L B-Type Natriuretic Peptide 148.99 0-100 pg/mL Beta-Hydroxybutyric Acid 0.256 < 0.4 mmol/L Problems(with codes): (1) Hypokalemia (2) Hypochloremia (3) Hypocalcemia (4) Essential hypertension (5) Gastroenteritis (6) Uterine fibroid (7) Abdominal pain (8) History of peptic ulcer disease (9) Uncontrolled type 2 diabetes mellitus (10) Hyperglycemia (11) Cellulitis of left foot Plan/Recommendation ASSESSMENT: Patient is a 52 year old seen on the floor for a worsening ulcer PLAN: - The patients chart was reviewed, clinical findings were discussed with the patient, the etiologies of the conditions were discussed in detail, and a treatment plan was agreed to at this time, with both oral and written instructions provided. - reviewed advanced imaging - discussed plan is to perform an incision and drainage - patient has been NPO since midnight - take her to the OR today - we will get cultures in the OR - can weightbear as tolerated in postoperative shoe All questions were answered and concerns addressed to the patient's satisfaction. The patient was given the phone number to the clinic and was told how to make contact with the clinic should any concerns or questions arise. Patient understands that if any questions or concerns arise prior to the next appointment, we should be contacted immediately. FOLLOW-UP: Continue to follow while inpatient Plan discussed with: Patient Date of Service: May 20, 2025 Billing Provider: MYA CORTEZ DPM Common Visit Codes: CONSULT ONLY Consultation Codes: [id number] CONSULT <80MIN MYA CORTEZ DPM May 20, 2025 13:21
[2025-05-20] MEDS: CEFEPIME 1GM/ 50ML 50 ML IV ONE (13:49)
[2025-05-20] MEDS ORDERED: KETOROLAC TROMETH 30 MG/ML 1ML VIAL ONE (14:10)
[2025-05-20] MEDS ORDERED: LIDOCAINE 1% INJ PF 5ML AMP ONE (14:10)
[2025-05-20] MEDS ORDERED: ONDANSETRON HCL 4 MG/2 ML VIAL ONE (14:10)
[2025-05-20] MEDS ORDERED: PROPOFOL 10 MG/ML 20 ML IV ONE (14:11)
[2025-05-20] MEDS ORDERED: GLYCOPYRROLATE 0.2 MG/ML 1ML VIAL ONE (14:11)
[2025-05-20] MEDS ORDERED: KETAMINE 50mg/ML 1ml syringe ONE (14:13)
[2025-05-20] MEDS: BUPIVACAINE 0.5% MPF INJ 30ML SDV IJ ONE (14:20)
[2025-05-20 14:33] VITALS: PULSE 63; RESP 16; O2SAT 99
[2025-05-20] MEDS ORDERED: FLUMAZENIL 0.1 MG/ML INJ 10ML MDV IV PRN (14:45)
[2025-05-20] MEDS ORDERED: NALOXONE HCL 0.4 MG/ML VIAL IV PRN (14:45)
[2025-05-20] MEDS ORDERED: ONDANSETRON HCL 4 MG/2 ML VIAL IV PRN (14:45)
[2025-05-20] MEDS ORDERED: fentaNYL CITRATE 100 MCG/2 ML VL IV PRN (14:45)
[2025-05-20] MEDS ORDERED: HYDROmorphone HCL 2 MG/ML VL/or syr IV PRN (14:45)
[2025-05-20] MEDS ORDERED: hydrALAZINE HCL 20 MG/ML VL IV PRN (14:45)
--- NOTE | 2025-05-20 14:46 | DVHOP2 ---
Operative Report - 2 Report Details Date: 05/20/25 Preop Diagnosis: 1. Left foot abscess 2. Left foot necrotizing fasciitis 3. Left foot cellulitis Postop Diagnosis: same as preop Surgeon: Mya Cortez MD Anesthesiologist: See anesthesia Anesthesia: Mac Consent: The patient was informed of the risks and benefits of the procedure. These include but are not limited to complications of anesthesia, postoperative infection, incomplete relief of symptoms, recurrence of symptoms, damage to blood vessels, nerves and tendons, deep venous thrombosis, pulmonary embolism and possible need for repeat surgery in the future. Complications: None Estimated Blood Loss: Minimal Fluids: See anesthesia Findings: Consistent with diagnosis Indications for Surgery: Worsening left foot infection Name of Procedure Performed 1. Left foot incision and drainage (26945) Procedure Details Procedure Details: PRE-PROCEDURE INFORMATION: In the pre-op holding area, the extremity to be operated on was clearly marked and the patient verified correct laterality of the marking. The patient was transferred to the OR table and placed in a supine position. A timeout was performed in which identification of the correct patient, procedure, location, and materials was done. The left foot and leg were prepped and draped in normal sterile fashion. DESCRIPTION OF PROCEDURE: Attention was directed to the left where area of fluctuance was noted. An incision was made over this area and was deepened through blunt dissection. The incision was deepened to the level of abscess Care was taken to the dissection to avoid any neurovascular and tendinous structures. The incision was the abscess appeared to be purulent fluid consistent with pus. All the necrotic tissue was then removed with a rongeur. There appeared to be multiple separate abscesses in the plantar foot. After the abscess was drained, the area was irrigated with 3 L normal saline using cysto tubing. Deep cultures were then obtained from the wound. The area was then inspected and any areas of tracking, especially along the tendons were also drained. The wound was packed with Betadine-soaked gauze and we will need to be closed at a later date. POSTOPERATIVE INFORMATION: The patient tolerated the above noted procedure and anesthesia well and was transferred to the PACU with vital signs stable, and vascular status intact with capillary refill intact to all digits. Deep cultures were taken, patient will return to the floor to continue IV antibiotics. Patient will need a subsequent incision and drainage scheduled for Tuesday. Patient will likely need multiple washouts in order to salvage the limb. Condition Good Disposition Still a Patient MYA CORTEZ DPM May 20, 2025 14:46
[2025-05-20 16:30] VITALS: BP 110/68; PULSE 62; RESP 16; TEMP 97.5; O2SAT 98
[2025-05-20 17:38] VITALS: BP 110/68; PULSE 62; RESP 16; TEMP 97.5; O2SAT 98
[2025-05-20 17:40] VITALS: PULSE 82; RESP 18; O2SAT 98
[2025-05-20] MEDS: HYDROcodone-ACET 5/325MG TAB PO PRN (20:29)
[2025-05-20 21:00] VITALS: BP 116/65; PULSE 73; RESP 17; TEMP 98.1; O2SAT 99
[2025-05-21] VITALS (7 sets, daily range): BP systolic 106–124; BP diastolic 63–79; PULSE 58–72; RESP 16–20; TEMP 97.7–98.8; O2SAT 96–100
[2025-05-21] MEDS: LEVOTHYROXINE SODIUM 25 MCG TAB PO SCH (04:44)
[2025-05-21 06:32] LABS: Hematocrit 33.9 % (36.0-46.0); Hemoglobin 11.6 g/dL (12.2-16.2); Mean Corpuscular Hemoglobin 30.1 pg (28.0-32.0); Mean Corpuscular Volume 88.1 fL (80.0-100.0); Nucleated Red Blood Cells % 0.0 %
[2025-05-21 06:44] LABS: Chloride 101 mmol/L (98-107); Potassium 4.6 mmol/L (3.5-5.1)
[2025-05-21 06:45] LABS: Anion Gap 9 (5-15); Carbon Dioxide 25 mmol/L (20-31)
[2025-05-21 06:46] LABS: Calcium 8.7 mg/dL (8.7-10.4)
[2025-05-21 06:51] LABS: BUN/Creatinine Ratio 18.9 (10.0-20.0); Blood Urea Nitrogen 17 mg/dL (9-23)
[2025-05-21 06:54] LABS: Glucose 109 mg/dL (74-106); Sodium 135 mmol/L (136-145)
[2025-05-21] MEDS: INSULIN LISPRO (HUMAN) 100 UNITS/ML ML SC SCH (11:30)
--- NOTE | 2025-05-21 13:00 | DVHPN2 ---
Subjective 62-year-old female with uncontrolled diabetes mellitus, seizure disorder, hypertension, scoliosis presents to the ER with excruciating back and left foot pain. She reports having a swelling on the left food since last 1 week. She was not able to pass urine, and a Valenzuela catheter was placed in the hospital which relieved her urine retention. The patient feels like dying out of pain. She denies any chest pain, shortness of breath, fever, abdominal pain or any other complaints. The unbearable pain was impairing patient's ability to provide detailed history. Changes from previous H/P or p: No Changes Objective Vitals Vital Signs Date Time Temp Pulse Resp B/P (MAP) Pulse Ox O2 Delivery O2 Flow Rate FiO2 05/21/25 09:00 98.2 62 20 116/65 (82) 100 98.2 05/20/25 20:00 Room Air* 0 21 Intake/Output Intake and Output 05/21/25 07:00 Intake Total 1187.5 ml Output Total 850 ml Balance 337.5 ml Intake Oral 300 ml IV Total 887.5 ml Output Urine Total 850 ml Exam Dermatological: Skin is dry with mild erythema and some maceration around the wound site No gross deformities noted Mild non-pitting edema present bilaterally Fluctuance in the plantar midfoot left foot Vascular: Dorsalis pedis and posterior tibial pulses are 1+ bilaterally Capillary refill is under 2 seconds Skin temperature is warm bilaterally Neurologic: Protective sensation is absent on the plantar forefoot bilaterally Monofilament testing reveals decreased sensation in multiple plantar sites Musculoskeletal: Range of motion at the ankle and MTP joints is within normal limits. Strength is 5/5 in all tested muscle groups. Gait is antalgic due to offloading of the affected limb. Medications Current Medications Medications Dose Ordered Sig/Sean Route Start Time Stop Time Status Last Admin Dose Admin Cefepime HCl 50 ml @ 12.5 mls/hr Q8HR IV 05/20/25 06:00 05/21/25 04:44 12.5 MLS/HR Acetaminophen/ Hydrocodone Bitart 1 tab Q4HPRN PRN PO 05/20/25 03:30 05/21/25 04:59 1 TAB Diagnostic Test (Pha) 1 strip IQ4HR 05/20/25 08:00 05/21/25 11:26 1 STRIP Insulin Human Regular IQ4HR SC 05/20/25 08:00 05/21/25 11:31 6 UNITS Dextrose 50 ml UD PRN IV 05/20/25 04:45 Lactated Ringer's 1,000 ml @ 125 mls/hr Q8H IV 05/20/25 09:00 05/21/25 04:50 125 MLS/HR Vancomycin HCl 0 ml @ 0 mls/hr UD IV 05/20/25 09:00 Loratadine 10 mg DAILY PO 05/20/25 10:00 05/21/25 09:48 10 MG Fluoxetine HCl 20 mg DAILY PO 05/20/25 10:00 05/21/25 09:48 20 MG Pregabalin 75 mg BID PO 05/20/25 10:00 05/21/25 09:48 75 MG Insulin Glargine 20 units HS SC 05/20/25 09:00 05/20/25 20:46 20 UNITS Diagnostic Test (Pha) 1 strip Q6HR 05/20/25 12:00 Cancel Insulin Human Regular Q6HR SC 05/20/25 12:00 Cancel Dextrose 50 ml UD PRN IV 05/20/25 09:00 Cancel Levothyroxine Sodium 75 mcg QAM@0600 PO 05/21/25 06:00 05/21/25 04:44 75 MCG Insulin Human Lispro 6 units AC SC 05/21/25 11:30 UNV Vancomycin HCl 100 ml @ 100 mls/hr Q12H IV 05/21/25 13:00 Laboratory Results Laboratory Tests 05/21/25 05:35 Chemistry Test 05/21/25 05:35 Calcium Level 8.7 mg/dL (8.7-10.4) Urinalysis Test 05/20/25 01:20 Urine Color Colorless (Yellow) Urine Clarity Clear (Clear) Urine pH 5.5 (5.0-9.0) Urine Specific [place] 1.025 (1.001-1.035) Urine Protein Negative (Negative) Urine Ketones Negative (Negative) Urine Blood Negative /uL (Negative) Urine Nitrite Negative (Negative) Urine Bilirubin Negative (Negative) Urine Urobilinogen Normal mg/dL (Negative) Urine Leukocyte Esterase Negative /uL (Negative) Urine RBC 1 /hpf (0 - 4) Urine Microscopic WBC < 1 /HPF (0-5) Urine Squamous Epithelial Cells None seen /hpf (<5) Urine Bacteria None seen /hpf (None Seen) Urine Glucose 4+ mg/dL (Normal) H Microbiology Microbiology Date/Time Source Procedure Growth Status 05/20/25 14:25 Foot Left Gram Stain - Final Resulted 05/20/25 14:25 Foot Left Anaerobic Culture - Preliminary Resulted 05/20/25 14:25 Foot Left Aerobic Culture - Preliminary Resulted 05/19/25 22:09 Blood Blood Culture - Preliminary NO GROWTH AFTER 24 HOURS OF INCUBATION. Resulted Assessment/Plan Assessment/Plan ASSESSMENT: Patient is a 52 year old seen on the floor follow up s/p foot I&D PLAN: - The patients chart was reviewed, clinical findings were discussed with the patient, the etiologies of the conditions were discussed in detail, and a treatment plan was agreed to at this time, with both oral and written instructions provided. - reviewed advanced imaging - reviewed all of the labs and pathology - discussed plan is to perform a subsequent incision and drainage - patient will be NPO at midnight - take her to the OR tomorrow - it was determined that multiple I&Ds will be necessary to save the limb - evaluted patients both feet and there is excessive dryness and onychomycosis that patient would benefit from routine foot care as an outpatient - can weightbear as tolerated in postoperative shoe All questions were answered and concerns addressed to the patient's satisfaction. The patient was given the phone number to the clinic and was told how to make contact with the clinic should any concerns or questions arise. Patient understands that if any questions or concerns arise prior to the next appointment, we should be contacted immediately. FOLLOW-UP: Continue to follow while inpatient Plan discussed with: Patient My Orders Orders - MYA CORTEZ DPM Procedure Category Date Status Time Obtain Consent For: ORDERS 05/20/25 Transmitted 13:17 Routine Bacterial ÓSCAR 05/20/25 In Process Culture 14:36 Anaerobic Culture ÓSCAR 05/20/25 In Process 14:36 Gram Stain ÓSCAR 05/20/25 In Process 14:36 Consistent DIET 05/20/25 Transmitted Carb(Ccho)Diabetes Dinner Problem List: (1) Hyperglycemia (2) Cellulitis of left foot (3) Hypokalemia (4) Hypochloremia (5) Hypocalcemia (6) Essential hypertension (7) Gastroenteritis (8) Uterine fibroid (9) Abdominal pain (10) History of peptic ulcer disease (11) Uncontrolled type 2 diabetes mellitus Visit Coding Podiatry Date of Service if different f: May 21, 2025 Billing Provider: MYA CORTEZ DPM Podiatry Common Visit Codes: [id number] INP/OBS CARE (HIGH) MYA CORTEZ DPM May 21, 2025 13:00
[2025-05-21] MEDS: VANCOMYCIN 750MG KIT 100 ML IV SCH (13:02)
--- NOTE | 2025-05-21 18:03 | DVHPNRES ---
Progress Note Date Seen: May 21, 2025 Resident Creating Document: ELI VILLANUEVA RESIDENT Medical Necessity Reason Pt with a Central, PICC or Fol: No Subjective Review of Systems Dayana Juarez is a 65-year-old female with past medical history of diabetes, scoliosis, depression, hypothyroidism, presented to the ER with chief complain of pain in left foot. She reported the pain started last week when she started wearing a new pair of shoes. The pain continued to worsen, making it difficult for her to move around. She saw her wound worsening yesterday which urged her visit to ER. She reports not being compliant on insulin. She appeared anxious and tearful. PMHx: Diabetes, scoliosis, depression, hypothyroidism PSHx: Left thumb reconstruction, cesareans, hernia repair Social history: Reports alcohol use occasionally. No recreational drug use. Lives with mother. Uses a walker or cane for ambulation. Home medication: Claritin tablet, omega-3, methocarbamol, fluoxetine, levothyroxine, insulin Lantus, pregabalin. Reports noncompliance on insulin, has not been taking levothyroxine. ROS: Constitutional: Reports 70 lb weight loss in the last year. Denies fever and chills. HEENT: Denies changes in vision and hearing. Respiratory: Denies shortness of breath and cough Cardiovascular: Denies chest discomfort or palpitations GI: Denies abdominal pain, nausea, vomiting and diarrhea. : Denies dysuria and urinary frequency. Musculoskeletal: Complains of pain in left foot, associated wound Skin: Complains of pruritus. Neurological: Denies dizziness, headache, vision or hearing problems Other: Scoliosis associated pain in the posterior trunk She was examined at bedside today. She underwent I and D yesterday, reports improvement in foot pain. Scheduled for another I&D today. We will continue monitoring and managing Objective vital signs Vital Sign Date Time Temp Pulse Resp B/P (MAP) Pulse Ox O2 Delivery O2 Flow Rate FiO2 05/21/25 13:04 98.8 69 18 124/79 (94) 98 98.8 05/20/25 20:00 Room Air* 0 21 Total Intake and Output 05/20/25 05/20/25 05/21/25 15:00 23:00 07:00 Intake Total 137.5 ml 700 ml 350 ml Output Total 600 ml 250 ml Balance 137.5 ml 100 ml 100 ml medications Current Medications Medications Dose Ordered Sig/Sean Route Start Time Stop Time Status Last Admin Dose Admin Cefepime HCl 50 ml @ 12.5 mls/hr Q8HR IV 05/20/25 06:00 05/21/25 14:06 12.5 MLS/HR Acetaminophen/ Hydrocodone Bitart 1 tab Q4HPRN PRN PO 05/20/25 03:30 05/21/25 04:59 1 TAB Diagnostic Test (Pha) 1 strip IQ4HR 05/20/25 08:00 05/21/25 16:00 1 STRIP Insulin Human Regular IQ4HR SC 05/20/25 08:00 05/21/25 16:00 3 UNITS Dextrose 50 ml UD PRN IV 05/20/25 04:45 Lactated Ringer's 1,000 ml @ 125 mls/hr Q8H IV 05/20/25 09:00 05/21/25 04:50 125 MLS/HR Vancomycin HCl 0 ml @ 0 mls/hr UD IV 05/20/25 09:00 Loratadine 10 mg DAILY PO 05/20/25 10:00 05/21/25 09:48 10 MG Fluoxetine HCl 20 mg DAILY PO 05/20/25 10:00 05/21/25 09:48 20 MG Pregabalin 75 mg BID PO 05/20/25 10:00 05/21/25 09:48 75 MG Insulin Glargine 20 units HS SC 05/20/25 09:00 05/20/25 20:46 20 UNITS Diagnostic Test (Pha) 1 strip Q6HR 05/20/25 12:00 Cancel Insulin Human Regular Q6HR SC 05/20/25 12:00 Cancel Dextrose 50 ml UD PRN IV 05/20/25 09:00 Cancel Levothyroxine Sodium 75 mcg QAM@0600 PO 05/21/25 06:00 05/21/25 04:44 75 MCG Insulin Human Lispro 6 units AC SC 05/21/25 11:30 05/21/25 17:07 6 UNITS Vancomycin HCl 100 ml @ 100 mls/hr Q12H IV 05/21/25 13:00 05/21/25 13:02 100 MLS/HR Examination General: Patient alert and oriented in person, place and time. Patient following commands. HEENT: Normocephalic, atraumatic, moist mucous membranes Respiratory/pulmonary: Scoliosis, pain with palpation of the posterior trunk. Clear lungs bilaterally, vesicular murmurs present in almost all lung moreno, no associated crackles or wheezes. Cardiovascular: Normal heart sounds S1 and S2 with no associated murmurs Abdomen: Abdomen nondistended, there is no pain to palpation in any of the abdominal quadrants, no palpable masses. Extremities: Inspection of left foot plantar surface shows erythematous lesion with purulence of approximately 6 X 3 cm. Increased temperature to touch, tenderness extending from plantar surface of foot up to the knee. Peripheral Pulses: 3+ Radial (R). 3+ Radial (L). 3+ Dorsalis pedis (R). 3+ Dorsalis pedis(L) Skin: Multiple erythematous lesions on extremities, face, trunk. Multiple Scab wounds present on bilateral lower extremities. Neurological: Intact cranial nerves with no focal neurologic deficits laboratory and microbiology Laboratory Tests 05/21/25 05:35 Test 05/21/25 05:35 Range/Units Serum Glucose 109 H 74-106 mg/dL Microbiology Date/Time Source Procedure Growth Status 05/20/25 14:25 Foot Left Gram Stain - Final Resulted 05/20/25 14:25 Foot Left Anaerobic Culture - Preliminary Resulted 05/20/25 14:25 Foot Left Aerobic Culture - Preliminary Resulted 05/19/25 22:09 Blood Blood Culture - Preliminary NO GROWTH AFTER 24 HOURS OF INCUBATION. Resulted Problem List/Assessment/Plan Problem List/Assessment/Plan Sepsis present on admission, due to wound with abscess on plantar surface of the left foot Cellulitis with purulence of left foot, possible Plantar wound with abscess on left foot, possible Diabetic foot ulcer, possible Neutrophilic leukocytosis Hypotension Labs showed WBC 12 K X-ray foot shows: Diffuse forefoot soft tissue swelling with possible erosion at the base of the 2nd proximal phalanx concerning for osteomyelitis. Recommend MRI of the forefoot. CXR shows: A small focal left basilar airspace disease may represent summation of structures, early or mild infection, or other etiology suggest pulmonary nodule or rib lesion. LR bolus administered Pain management Continue on cefepime, vancomycin. MRI left foot revealed: Wound of the plantar aspect of the forefoot with adjacent fluid collection, possible abscess. No evidence for osteomyelitis. Underwent I&D yesterday. Surgery on board, planed another I and D for today Uncontrolled, insulin-dependent Diabetes mellitus Hyperglycemia Medication noncompliance Glucose 804 on admission, 377 now, normal ketones Started sliding scale insulin and basal bolus insulin regimen Long discussion on addressing factors relating to noncompliance Normocytic, normochromic anemia, unspecified Hemoglobin 11.6 Hypocalcemia Hyponatremia Hypochloremia Respiratory alkalosis, possible ABG 7.5, pCO2 of 32.5 Diabetic nephropathy, possible Elevated creatinine, 1.26 DIET: NPO CODE STATUS: Goals of care discussed with patient at bedside for more than 25 minutes. Full code DISPOSITION: ER bed 9 Patient's status and plan discussed with the patient. Case discussed with Dr. Vinson. Plan discussed with: Patient Date of Service: May 21, 2025 Billing Provider: ALEE VINSON MD Common Visit Codes: [id number] INP/OBS CARE(HIGH) ELI VILLANUEVA RESIDENT May 21, 2025 18:03 ALEE VINSON MD May 26, 2025 19:59
[2025-05-22] VITALS (7 sets, daily range): BP systolic 93–112; BP diastolic 54–72; PULSE 58–73; RESP 16–18; TEMP 96.9–97.8; O2SAT 94–98
[2025-05-22] MEDS: MORPHINE SULFATE INJ 2 MG/ml SYRG IV ONE (05:03)
[2025-05-22 07:01] LABS: Hematocrit 32.6 % (36.0-46.0); Hemoglobin 11.0 g/dL (12.2-16.2); Mean Corpuscular Hemoglobin 30.0 pg (28.0-32.0); Mean Corpuscular Volume 88.6 fL (80.0-100.0); Nucleated Red Blood Cells % 0.1 %
[2025-05-22 07:30] LABS: Anion Gap 6 (5-15); Carbon Dioxide 26 mmol/L (20-31); Chloride 105 mmol/L (98-107); Potassium 4.3 mmol/L (3.5-5.1); Sodium 137 mmol/L (136-145)
[2025-05-22 07:36] LABS: BUN/Creatinine Ratio 21.4 (10.0-20.0); Blood Urea Nitrogen 22 mg/dL (9-23); Calcium 8.4 mg/dL (8.7-10.4); Glucose 109 mg/dL (74-106)
--- NOTE | 2025-05-22 13:12 | DVHPNRES ---
Progress Note Date Seen: May 22, 2025 Resident Creating Document: ELI VILLANUEVA RESIDENT Medical Necessity Reason Pt with a Central, PICC or Fol: No Subjective Review of Systems Dayana Juarez is a 65-year-old female with past medical history of diabetes, scoliosis, depression, hypothyroidism, presented to the ER with chief complain of pain in left foot. She reported the pain started last week when she started wearing a new pair of shoes. The pain continued to worsen, making it difficult for her to move around. She saw her wound worsening yesterday which urged her visit to ER. She reports not being compliant on insulin. She appeared anxious and tearful. PMHx: Diabetes, scoliosis, depression, hypothyroidism PSHx: Left thumb reconstruction, cesareans, hernia repair Social history: Reports alcohol use occasionally. No recreational drug use. Lives with mother. Uses a walker or cane for ambulation. Home medication: Claritin tablet, omega-3, methocarbamol, fluoxetine, levothyroxine, insulin Lantus, pregabalin. Reports noncompliance on insulin, has not been taking levothyroxine. ROS: Constitutional: Reports 70 lb weight loss in the last year. Denies fever and chills. HEENT: Denies changes in vision and hearing. Respiratory: Denies shortness of breath and cough Cardiovascular: Denies chest discomfort or palpitations GI: Denies abdominal pain, nausea, vomiting and diarrhea. : Denies dysuria and urinary frequency. Musculoskeletal: Complains of pain in left foot, associated wound Skin: Complains of pruritus. Neurological: Denies dizziness, headache, vision or hearing problems Other: Scoliosis associated pain in the posterior trunk She was examined at bedside today. Status post I&D, reports improvement in foot pain. Surgery on board. Discussed multiple I and D, necessary to save the limb. Scheduled for another I&D today. We will continue monitoring and managing Objective vital signs Vital Sign Date Time Temp Pulse Resp B/P (MAP) Pulse Ox O2 Delivery O2 Flow Rate FiO2 05/22/25 09:00 97.2 60 16 111/71 (84) 98 97.2 05/22/25 08:00 Room Air* 0 21 Total Intake and Output 05/21/25 05/21/25 05/22/25 14:59 22:59 06:59 Intake Total 150 ml 510 ml 900 ml Output Total 800 ml 2000 ml Balance 150 ml -290 ml -1100 ml medications Current Medications Medications Dose Ordered Sig/Sean Route Start Time Stop Time Status Last Admin Dose Admin Cefepime HCl 50 ml @ 12.5 mls/hr Q8HR IV 05/20/25 06:00 05/22/25 04:52 12.5 MLS/HR Acetaminophen/ Hydrocodone Bitart 1 tab Q4HPRN PRN PO 05/20/25 03:30 05/22/25 03:30 1 TAB Diagnostic Test (Pha) 1 strip IQ4HR 05/20/25 08:00 05/22/25 11:23 1 STRIP Insulin Human Regular IQ4HR SC 05/20/25 08:00 05/21/25 20:10 2 UNITS Dextrose 50 ml UD PRN IV 05/20/25 04:45 Lactated Ringer's 1,000 ml @ 125 mls/hr Q8H IV 05/20/25 09:00 05/22/25 09:00 125 MLS/HR Vancomycin HCl 0 ml @ 0 mls/hr UD IV 05/20/25 09:00 Loratadine 10 mg DAILY PO 05/20/25 10:00 05/21/25 09:48 10 MG Fluoxetine HCl 20 mg DAILY PO 05/20/25 10:00 05/21/25 09:48 20 MG Pregabalin 75 mg BID PO 05/20/25 10:00 05/21/25 21:58 75 MG Insulin Glargine 20 units HS SC 05/20/25 09:00 05/20/25 20:46 20 UNITS Diagnostic Test (Pha) 1 strip Q6HR 05/20/25 12:00 Cancel Insulin Human Regular Q6HR SC 05/20/25 12:00 Cancel Dextrose 50 ml UD PRN IV 05/20/25 09:00 Cancel Levothyroxine Sodium 75 mcg QAM@0600 PO 05/21/25 06:00 05/21/25 04:44 75 MCG Insulin Human Lispro 6 units AC SC 05/21/25 11:30 05/21/25 17:07 6 UNITS Vancomycin HCl 100 ml @ 100 mls/hr Q12H IV 05/21/25 13:00 05/22/25 02:06 100 MLS/HR Examination General: Patient alert and oriented in person, place and time. Patient following commands. HEENT: Normocephalic, atraumatic, moist mucous membranes Respiratory/pulmonary: Scoliosis, pain with palpation of the posterior trunk. Clear lungs bilaterally, vesicular murmurs present in almost all lung moreno, no associated crackles or wheezes. Cardiovascular: Normal heart sounds S1 and S2 with no associated murmurs Abdomen: Abdomen nondistended, there is no pain to palpation in any of the abdominal quadrants, no palpable masses. Extremities: Status post I&D, Left foot dressing dry. Surgery on board, scheduled another I and D today Peripheral Pulses: 3+ Radial (R). 3+ Radial (L). 3+ Dorsalis pedis (R). 3+ Dorsalis pedis(L) Skin: Multiple erythematous lesions on extremities, face, trunk. Multiple Scab wounds present on bilateral lower extremities. Neurological: Intact cranial nerves with no focal neurologic deficits laboratory and microbiology Laboratory Tests 05/22/25 06:08 Test 05/22/25 06:08 Range/Units Serum Glucose 109 H 74-106 mg/dL Microbiology Date/Time Source Procedure Growth Status 05/20/25 14:25 Foot Left Gram Stain - Final Resulted 05/20/25 14:25 Foot Left Anaerobic Culture - Preliminary Resulted 05/20/25 14:25 Foot Left Aerobic Culture - Preliminary Resulted 05/19/25 22:09 Blood Blood Culture - Preliminary NO GROWTH AFTER 48 HOURS OF INCUBATION. Resulted Problem List/Assessment/Plan Problem List/Assessment/Plan Sepsis present on admission, due to wound with abscess on plantar surface of the left foot Cellulitis with purulence of left foot, possible Plantar wound with abscess on left foot, possible Diabetic foot ulcer, possible Neutrophilic leukocytosis Hypotension Labs showed WBC 12 K X-ray foot shows: Diffuse forefoot soft tissue swelling with possible erosion at the base of the 2nd proximal phalanx concerning for osteomyelitis. Recommend MRI of the forefoot. CXR shows: A small focal left basilar airspace disease may represent summation of structures, early or mild infection, or other etiology suggest pulmonary nodule or rib lesion. LR bolus administered Pain management Continue on cefepime, vancomycin. MRI left foot revealed: Wound of the plantar aspect of the forefoot with adjacent fluid collection, possible abscess. No evidence for osteomyelitis. Underwent I&D yesterday. Surgery on board, recommended a subsequent incision and drainage; multiple I&Ds will be necessary to save the limb. Routine foot care as an outpatient Uncontrolled, insulin-dependent Diabetes mellitus Hyperglycemia Medication noncompliance Glucose 804 on admission, 377 now, normal ketones Started sliding scale insulin and basal bolus insulin regimen Long discussion on addressing factors relating to noncompliance Normocytic, normochromic anemia, unspecified Hemoglobin 11.6 Hypocalcemia Hyponatremia Hypochloremia Respiratory alkalosis, possible ABG 7.5, pCO2 of 32.5 Diabetic nephropathy, possible Elevated creatinine, 1.26 DIET: NPO CODE STATUS: Goals of care discussed with patient at bedside for more than 25 minutes. Full code DISPOSITION: Med surg Patient's status and plan discussed with the patient. Case discussed with Dr. Vinson. Plan discussed with: Patient Date of Service: May 22, 2025 Billing Provider: ALEE VINSON MD Common Visit Codes: [id number] INP/OBS CARE(HIGH) ELI VILLANUEVA RESIDENT May 22, 2025 13:12 ALEE VINSON MD May 26, 2025 20:17
[2025-05-22] MEDS: InsuLIN REG 1unit/0.01ml Soln (100units/ml) SC ONE (22:24)
[2025-05-23] VITALS (9 sets, daily range): BP systolic 95–110; BP diastolic 45–65; PULSE 61–75; RESP 14–19; TEMP 97.9–98.5; O2SAT 93–100
[2025-05-23] MEDS: InsuLIN REG 1unit/0.01ml Soln (100units/ml) SC SCH (05:51)
[2025-05-23 09:29] LABS: Chloride 104 mmol/L (98-107); Potassium 4.5 mmol/L (3.5-5.1); Sodium 139 mmol/L (136-145)
[2025-05-23 09:30] LABS: Anion Gap 8 (5-15); Carbon Dioxide 27 mmol/L (20-31)
[2025-05-23 09:32] LABS: Hematocrit 33.8 % (36.0-46.0); Hemoglobin 11.4 g/dL (12.2-16.2); Mean Corpuscular Hemoglobin 29.9 pg (28.0-32.0); Mean Corpuscular Volume 88.7 fL (80.0-100.0); Nucleated Red Blood Cells % 0.1 %
[2025-05-23 09:35] LABS: BUN/Creatinine Ratio 21.6 (10.0-20.0); Blood Urea Nitrogen 21 mg/dL (9-23)
[2025-05-23 09:38] LABS: Calcium 8.5 mg/dL (8.7-10.4); Glucose 110 mg/dL (74-106)
[2025-05-23] MEDS ORDERED: SODIUM CHLORIDE LOCK 10 ML ONE (13:13)
[2025-05-23] MEDS ORDERED: PROPOFOL 10 MG/ML 20 ML IV ONE (13:13)
[2025-05-23] MEDS ORDERED: LIDOCAINE 1% (LOCAL ANESTH.) PF 5ml SDV ONE (13:13)
[2025-05-23] MEDS ORDERED: fentaNYL CITRATE 100 MCG/2 ML VL ONE (13:13)
[2025-05-23] MEDS ORDERED: ONDANSETRON HCL 4 MG/2 ML VIAL ONE (13:13)
[2025-05-23] MEDS ORDERED: MIDAZOLAM HCL 2MG/2ML 2ml VIAL (1mg/ml) ONE (13:13)
[2025-05-23] MEDS ORDERED: KETAMINE 50mg/ML 1ml syringe ONE (13:13)
[2025-05-23] MEDS ORDERED: METOCLOPRAMIDE HCL 5MG/ml INJ 2ml VIAL IV ONE (13:15)
[2025-05-23] MEDS ORDERED: HYDROmorphone HCL 2 MG/ML VL/or syr IV PRN (13:15)
[2025-05-23] MEDS ORDERED: KETOROLAC TROMETH 30 MG/ML 1ML VIAL IV ONE (13:15)
[2025-05-23] MEDS ORDERED: MORPHINE SULFATE INJ 2 MG/ml SYRG IV PRN (13:15)
[2025-05-23] MEDS ORDERED: MORPHINE SULFATE 4 MG/ML SYR/VIAL IV PRN (13:15)
--- NOTE | 2025-05-23 13:23 | DVHPN2 ---
Subjective 62-year-old female with uncontrolled diabetes mellitus, seizure disorder, hypertension, scoliosis presents to the ER with excruciating back and left foot pain. She reports having a swelling on the left food since last 1 week. She was not able to pass urine, and a Valenzuela catheter was placed in the hospital which relieved her urine retention. The patient feels like dying out of pain. She denies any chest pain, shortness of breath, fever, abdominal pain or any other complaints. The unbearable pain was impairing patient's ability to provide detailed history. Changes from previous H/P or p: No Changes Objective Vitals Vital Signs Date Time Temp Pulse Resp B/P (MAP) Pulse Ox O2 Delivery O2 Flow Rate FiO2 05/23/25 09:00 97.9 63 18 96/58 (71) 98 97.9 05/23/25 08:00 Room Air* 0 21 Intake/Output Intake and Output 05/23/25 07:00 Intake Total 750 ml Output Total 1650 ml Balance -900 ml Intake Oral 600 ml IV Total 150 ml Output Urine Total 1650 ml Exam Dermatological: Skin is dry with mild erythema and some maceration around the wound site No gross deformities noted Mild non-pitting edema present bilaterally Fluctuance in the plantar midfoot left foot Vascular: Dorsalis pedis and posterior tibial pulses are 1+ bilaterally Capillary refill is under 2 seconds Skin temperature is warm bilaterally Neurologic: Protective sensation is absent on the plantar forefoot bilaterally Monofilament testing reveals decreased sensation in multiple plantar sites Musculoskeletal: Range of motion at the ankle and MTP joints is within normal limits. Strength is 5/5 in all tested muscle groups. Gait is antalgic due to offloading of the affected limb. Medications Current Medications Medications Dose Ordered Sig/Sean Route Start Time Stop Time Status Last Admin Dose Admin Cefepime HCl 50 ml @ 12.5 mls/hr Q8HR IV 05/20/25 06:00 05/23/25 05:42 12.5 MLS/HR Acetaminophen/ Hydrocodone Bitart 1 tab Q4HPRN PRN PO 05/20/25 03:30 05/23/25 05:41 1 TAB Diagnostic Test (Pha) 1 strip IQ4HR 05/20/25 08:00 05/23/25 11:26 1 STRIP Dextrose 50 ml UD PRN IV 05/20/25 04:45 Lactated Ringer's 1,000 ml @ 125 mls/hr Q8H IV 05/20/25 09:00 05/23/25 09:00 125 MLS/HR Vancomycin HCl 0 ml @ 0 mls/hr UD IV 05/20/25 09:00 Loratadine 10 mg DAILY PO 05/20/25 10:00 05/21/25 09:48 10 MG Fluoxetine HCl 20 mg DAILY PO 05/20/25 10:00 05/21/25 09:48 20 MG Pregabalin 75 mg BID PO 05/20/25 10:00 05/22/25 21:09 75 MG Insulin Glargine 20 units HS MN 05/20/25 09:00 05/22/25 21:33 20 UNITS Diagnostic Test (Pha) 1 strip Q6HR 05/20/25 12:00 Cancel Insulin Human Regular Q6HR MN 05/20/25 12:00 Cancel Dextrose 50 ml UD PRN IV 05/20/25 09:00 Cancel Levothyroxine Sodium 75 mcg QAM@0600 PO 05/21/25 06:00 05/21/25 04:44 75 MCG Insulin Human Lispro 6 units AC MN 05/21/25 11:30 05/21/25 17:07 6 UNITS Vancomycin HCl 100 ml @ 100 mls/hr Q12H IV 05/21/25 13:00 05/23/25 01:38 100 MLS/HR Insulin Human Regular AC MN 05/23/25 07:00 Hydromorphone HCl 0.5 mg Q10M PRN IV 05/23/25 13:15 05/23/25 13:56 UNV Morphine Sulfate 2 mg Q4H PRN IV 05/23/25 13:15 05/23/25 17:16 UNV Hydromorphone HCl 0.25 mg Q10M PRN IV 05/23/25 13:15 05/23/25 13:46 UNV Morphine Sulfate 1 mg Q30M PRN IV 05/23/25 13:15 05/23/25 15:16 UNV Laboratory Results Laboratory Tests 05/23/25 06:10 Chemistry Test 05/23/25 06:10 Calcium Level 8.5 mg/dL (8.7-10.4) L Urinalysis Test 05/20/25 01:20 Urine Color Colorless (Yellow) Urine Clarity Clear (Clear) Urine pH 5.5 (5.0-9.0) Urine Specific [place] 1.025 (1.001-1.035) Urine Protein Negative (Negative) Urine Ketones Negative (Negative) Urine Blood Negative /uL (Negative) Urine Nitrite Negative (Negative) Urine Bilirubin Negative (Negative) Urine Urobilinogen Normal mg/dL (Negative) Urine Leukocyte Esterase Negative /uL (Negative) Urine RBC 1 /hpf (0 - 4) Urine Microscopic WBC < 1 /HPF (0-5) Urine Squamous Epithelial Cells None seen /hpf (<5) Urine Bacteria None seen /hpf (None Seen) Urine Glucose 4+ mg/dL (Normal) H Microbiology Microbiology Date/Time Source Procedure Growth Status 05/20/25 14:25 Foot Left Gram Stain - Final Resulted 05/20/25 14: Foot Left Anaerobic Culture - Preliminary Resulted 05/20/25 14: Aerobic Culture - Preliminary Staphylococcus aureus Resulted 05/19/25 22:09 Blood Blood Culture - Preliminary NO GROWTH AFTER 72 HOURS OF INCUBATION. Resulted Assessment/Plan Assessment/Plan ASSESSMENT: Patient is a 52 year old seen on the floor follow up s/p foot I&D PLAN: - The patients chart was reviewed, clinical findings were discussed with the patient, the etiologies of the conditions were discussed in detail, and a treatment plan was agreed to at this time, with both oral and written instructions provided. - reviewed advanced imaging - reviewed all of the labs and pathology - discussed plan is to perform a subsequent incision and drainage with closure - patient has been NPO since midnight - take her to the OR today - can weightbear as tolerated in postoperative shoe All questions were answered and concerns addressed to the patient's satisfaction. The patient was given the phone number to the clinic and was told how to make contact with the clinic should any concerns or questions arise. Patient understands that if any questions or concerns arise prior to the next appointment, we should be contacted immediately. FOLLOW-UP: Continue to follow while inpatient Plan discussed with: Patient My Orders Orders - MYA CORTEZ DPM Procedure Category Date Status Time Obtain Consent For: ORDERS 05/22/25 Transmitted 16:17 Problem List: (1) Hyperglycemia (2) Cellulitis of left foot (3) Hypokalemia (4) Hypochloremia (5) Hypocalcemia (6) Essential hypertension (7) Gastroenteritis (8) Uterine fibroid (9) Abdominal pain (10) History of peptic ulcer disease (11) Uncontrolled type 2 diabetes mellitus Visit Coding Podiatry Date of Service if different f: May 23, 2025 Billing Provider: MYA CORTEZ DPM Podiatry Common Visit Codes: [id number] INP/OBS CARE(HIGH) MYA CORTEZ DPM May 23, 2025 13:23
[2025-05-23] MEDS: ceFAZolin 2 GM/D5W50ml 50 ML IV ONE (13:40)
[2025-05-23] MEDS: BUPIVACAINE 0.5% P/F INJ 10 ML VIAL ONE (13:50)
--- NOTE | 2025-05-23 14:04 | DVHOP2 ---
Operative Report - 2 Report Details Date: 05/23/25 Preop Diagnosis: 1. Left foot abscess 2. Left foot necrotizing fasciitis 3. Left foot cellulitis Postop Diagnosis: same as preop Surgeon: Mya Cortez MD Anesthesiologist: See anesthesia Anesthesia: Mac Implant: Integra 5x5 graft Consent: The patient was informed of the risks and benefits of the procedure. These include but are not limited to complications of anesthesia, postoperative infection, incomplete relief of symptoms, recurrence of symptoms, damage to blood vessels, nerves and tendons, deep venous thrombosis, pulmonary embolism and possible need for repeat surgery in the future. Complications: None Estimated Blood Loss: Minimal Fluids: See anesthesia Findings: Consistent with diagnosis Indications for Surgery: Worsening foot wound Name of Procedure Performed 1. Left foot incision and drainage (15093) 2. Left foot placement of graft (81466) 3. Left foot delayed closure (37202) Procedure Details Procedure Details: PRE-PROCEDURE INFORMATION: In the pre-op holding area, the extremity to be operated on was clearly marked and the patient verified correct laterality of the marking. The patient was transferred to the OR table and placed in a supine position. A timeout was performed in which identification of the correct patient, procedure, location, and materials was done. The left foot and leg were prepped and draped in normal sterile fashion. DESCRIPTION OF PROCEDURE: Attention was directed to the left where area of fluctuance was noted. An incision was made over this area and was deepened through blunt dissection. The incision was deepened to the level of abscess Care was taken to the dissection to avoid any neurovascular and tendinous structures. The incision was the abscess appeared to be purulent fluid consistent with pus. All the necrotic tissue was then removed with a rongeur. There appeared to be multiple separate abscesses in the plantar foot. After the abscess was drained, the area was irrigated with 3 L normal saline using cysto tubing. An Integra 5 x 5 graft was then placed over the large wound, and stapled to the skin. A delayed closure was then performed using 2-0 nylon after was deemed appropriate with no longer concern for infection. POSTOPERATIVE INFORMATION: The patient tolerated the above noted procedure and anesthesia well and was transferred to the PACU with vital signs stable, and vascular status intact with capillary refill intact to all digits. Patient can return to the floor continue IV antibiotics. Patient will need 2 weeks of p.o. antibiotics. Patient can weightbear as tolerated in postoperative shoe. Patient will follow up with me in 1 week. Condition Good Disposition Still a Patient Visit Coding Podiatry Date of Service if different f: May 23, 2025 Billing Provider: MYA CORTEZ DPM Podiatry Common Visit Codes: PROCEDURE ONLY 87324 -LATE CLOSURE OF WOUND: 93095-HTAP CLSR OF WOUND (LEFT) 04702-CRTC SUB GRAFT FACE/NK/H: 03680-BBD SUB GRFT F/N/H/F/(LEFT) 41355-NRYAE FOOT BONE LESION: 57094-KA FOOT BONE LESN (LEFT) MYA CORTEZ DPM May 23, 2025 14:04
[2025-05-23] MEDS: HYDROmorphone HCL 2 MG/ML VL/or syr IV PRN (14:10)
--- NOTE | 2025-05-23 17:24 | DVHPNRES ---
Progress Note Date Seen: May 23, 2025 Resident Creating Document: ELI VILLANUEVA RESIDENT Medical Necessity Reason Pt with a Central, PICC or Fol: No Subjective Review of Systems Dayana Juarez is a 65-year-old female with past medical history of diabetes, scoliosis, depression, hypothyroidism, presented to the ER with chief complain of pain in left foot. She reported the pain started last week when she started wearing a new pair of shoes. The pain continued to worsen, making it difficult for her to move around. She saw her wound worsening yesterday which urged her visit to ER. She reports not being compliant on insulin. She appeared anxious and tearful. PMHx: Diabetes, scoliosis, depression, hypothyroidism PSHx: Left thumb reconstruction, cesareans, hernia repair Social history: Reports alcohol use occasionally. No recreational drug use. Lives with mother. Uses a walker or cane for ambulation. Home medication: Claritin tablet, omega-3, methocarbamol, fluoxetine, levothyroxine, insulin Lantus, pregabalin. Reports noncompliance on insulin, has not been taking levothyroxine. ROS: Constitutional: Reports 70 lb weight loss in the last year. Denies fever and chills. HEENT: Denies changes in vision and hearing. Respiratory: Denies shortness of breath and cough Cardiovascular: Denies chest discomfort or palpitations GI: Denies abdominal pain, nausea, vomiting and diarrhea. : Denies dysuria and urinary frequency. Musculoskeletal: Complains of pain in left foot, associated wound Skin: Complains of pruritus. Neurological: Denies dizziness, headache, vision or hearing problems Other: Scoliosis associated pain in the posterior trunk She was examined at bedside today. Status post I&D, reports improvement in foot pain. Surgery on board. Discussed multiple I and D, necessary to save the limb. Rescheduled her I&D today. We will continue monitoring and managing Objective vital signs Vital Sign Date Time Temp Pulse Resp B/P (MAP) Pulse Ox O2 Delivery O2 Flow Rate FiO2 05/23/25 14:25 64 11 92/49 (63) 98 05/23/25 13:55 100.0 100.0 05/23/25 13:55 Mask 7.0 100 Total Intake and Output 05/22/25 05/22/25 05/23/25 15:00 23:00 07:00 Intake Total 300 ml 450 ml Output Total 800 ml 850 ml Balance -500 ml -400 ml medications Current Medications Medications Dose Ordered Sig/Sean Route Start Time Stop Time Status Last Admin Dose Admin Cefepime HCl 50 ml @ 12.5 mls/hr Q8HR IV 05/20/25 06:00 05/23/25 05:42 12.5 MLS/HR Acetaminophen/ Hydrocodone Bitart 1 tab Q4HPRN PRN PO 05/20/25 03:30 05/23/25 05:41 1 TAB Diagnostic Test (Pha) 1 strip IQ4HR 05/20/25 08:00 05/23/25 11:26 1 STRIP Dextrose 50 ml UD PRN IV 05/20/25 04:45 Lactated Ringer's 1,000 ml @ 125 mls/hr Q8H IV 05/20/25 09:00 05/23/25 09:00 125 MLS/HR Vancomycin HCl 0 ml @ 0 mls/hr UD IV 05/20/25 09:00 Loratadine 10 mg DAILY PO 05/20/25 10:00 05/21/25 09:48 10 MG Fluoxetine HCl 20 mg DAILY PO 05/20/25 10:00 05/21/25 09:48 20 MG Pregabalin 75 mg BID PO 05/20/25 10:00 05/22/25 21:09 75 MG Insulin Glargine 20 units HS SC 05/20/25 09:00 05/22/25 21:33 20 UNITS Diagnostic Test (Pha) 1 strip Q6HR 05/20/25 12:00 Cancel Insulin Human Regular Q6HR SC 05/20/25 12:00 Cancel Dextrose 50 ml UD PRN IV 05/20/25 09:00 Cancel Levothyroxine Sodium 75 mcg QAM@0600 PO 05/21/25 06:00 05/21/25 04:44 75 MCG Insulin Human Lispro 6 units AC SC 05/21/25 11:30 05/21/25 17:07 6 UNITS Insulin Human Regular AC SC 05/23/25 07:00 Vancomycin HCl 100 ml @ 100 mls/hr Q16H IV 05/23/25 17:00 Examination General: Patient alert and oriented in person, place and time. Patient following commands. HEENT: Normocephalic, atraumatic, moist mucous membranes Respiratory/pulmonary: Scoliosis, pain with palpation of the posterior trunk. Clear lungs bilaterally, vesicular murmurs present in almost all lung moreno, no associated crackles or wheezes. Cardiovascular: Normal heart sounds S1 and S2 with no associated murmurs Abdomen: Abdomen nondistended, there is no pain to palpation in any of the abdominal quadrants, no palpable masses. Extremities: Status post I&D, Left foot dressing dry. Surgery on board, scheduled another I and D today Peripheral Pulses: 3+ Radial (R). 3+ Radial (L). 3+ Dorsalis pedis (R). 3+ Dorsalis pedis(L) Skin: Multiple erythematous lesions on extremities, face, trunk. Multiple Scab wounds present on bilateral lower extremities. Neurological: Intact cranial nerves with no focal neurologic deficits laboratory and microbiology Laboratory Tests 05/23/25 06:10 Test 05/23/25 06:10 Range/Units Serum Glucose 110 H 74-106 mg/dL Microbiology Date/Time Source Procedure Growth Status 05/20/25 14: Foot Left Gram Stain - Final Resulted 05/20/25 14: Foot Left Anaerobic Culture - Preliminary Resulted 05/20/25 14: Aerobic Culture - Preliminary Staphylococcus aureus Resulted 05/19/25 22:09 Blood Blood Culture - Preliminary NO GROWTH AFTER 72 HOURS OF INCUBATION. Resulted Problem List/Assessment/Plan Problem List/Assessment/Plan Sepsis present on admission, due to wound with abscess on plantar surface of the left foot Cellulitis with purulence of left foot, possible Plantar wound with abscess on left foot, possible Diabetic foot ulcer, possible Neutrophilic leukocytosis Hypotension Labs showed WBC 12 K X-ray foot shows: Diffuse forefoot soft tissue swelling with possible erosion at the base of the 2nd proximal phalanx concerning for osteomyelitis. Recommend MRI of the forefoot. CXR shows: A small focal left basilar airspace disease may represent summation of structures, early or mild infection, or other etiology suggest pulmonary nodule or rib lesion. LR bolus administered Pain management Continue on cefepime, vancomycin. MRI left foot revealed: Wound of the plantar aspect of the forefoot with adjacent fluid collection, possible abscess. No evidence for osteomyelitis. Status post I&D. Surgery on board, recommended a subsequent incision and drainage; multiple I&Ds will be necessary to save the limb. Routine foot care as an outpatient Her subsequent I and D with closure rescheduled for today. Can weightbear as tolerated in postoperative shoe Uncontrolled, insulin-dependent Diabetes mellitus Hyperglycemia Medication noncompliance Glucose 804 on admission, 377 now, normal ketones Started sliding scale insulin and basal bolus insulin regimen Long discussion on addressing factors relating to noncompliance Normocytic, normochromic anemia, unspecified Hemoglobin 11.6 Hypocalcemia Hyponatremia Hypochloremia Respiratory alkalosis, possible ABG 7.5, pCO2 of 32.5 Diabetic nephropathy, possible Elevated creatinine, 1.26 DIET: NPO CODE STATUS: Goals of care discussed with patient at bedside for more than 25 minutes. Full code DISPOSITION: Med surg Patient's status and plan discussed with the patient. Case discussed with Dr. Vinson. Plan discussed with: Patient My Orders My Orders Orders - ELI VILLANUEVA RESIDENT Procedure Category Date Status Time Insulin R (Human) PHA 05/23/25 In Process (Insulin R) 07:00 Npo (Nothing By DIET 05/23/25 Transmitted Mouth) Diet Breakfast Date of Service: May 23, 2025 Billing Provider: ALEE VINSON MD Common Visit Codes: [id number] INP/OBS CARE(HIGH) ELI VILLANUEVA May 23, 2025 17:24 ALEE VINSON MD May 26, 2025 20:42
[2025-05-23] MEDS: VANCOMYCIN 750MG KIT 100 ML IV SCH (17:31)
[2025-05-24] VITALS (7 sets, daily range): BP systolic 84–126; BP diastolic 43–77; PULSE 60–75; RESP 16–19; TEMP 36.6; O2SAT 90–97
[2025-05-24] MEDS: AMPICILLIN & SULBACTAM SODIUM 3 GM in SODIUM CHL 0.9% 100 ML IV SCH (01:33)
--- NOTE | 2025-05-24 15:41 | DVHDSRES ---
Discharge Summary Date of Admission Resident Creating Document: ELI VILLANUEVA RESIDENT May 20, 2025 at 02:54 Date of Discharge: May 24, 2025 Labs/Diagnostic Data: Laboratory Results Test 05/24/25 12:19 05/23/25 06:10 05/22/25 11:48 05/21/25 05:35 POC Glucose 120 mg/dl (70-106) White Blood Count 8.4 10^3/uL (4.4-10.8) Red Blood Count 3.81 10^6/uL (4.0-5.20) Hemoglobin 11.4 g/dL (12.2-16.2) Hematocrit 33.8 % (36.0-46.0) Mean Corpuscular Volume 88.7 fL (80.0-100.0) Mean Corpuscular Hemoglobin 29.9 pg (28.0-32.0) Mean Corpuscular Hemoglobin Concent 33.7 g/dL (32.0-36.0) Red Cell Distribution Width 13.4 % (11.8-14.3) Platelet Count 396 10^3/uL (140-450) Mean Platelet Volume 7.8 fL (6.9-10.8) Neutrophils (%) (Auto) 70.4 % (37.0-80.0) Lymphocytes (%) (Auto) 20.4 % (10.0-50.0) Monocytes (%) (Auto) 6.6 % (0.0-12.0) Eosinophils (%) (Auto) 1.5 % (0.0-7.0) Basophils (%) (Auto) 1.1 % (0.0-2.0) Neutrophils # (Auto) 5.9 10 ^3/uL (1.6-8.6) Lymphocytes # (Auto) 1.7 10 ^3/uL (0.4-5.4) Monocytes # (Auto) 0.6 10 ^3/uL (0-1.3) Eosinophils # (Auto) 0.1 10 ^3/uL (0-0.8) Basophils # (Auto) 0.1 10 ^3/uL (0-0.2) Nucleated Red Blood Cells 0.1 % Sodium Level 139 mmol/L (136-145) Potassium Level 4.5 mmol/L (3.5-5.1) Chloride Level 104 mmol/L (98-107) Carbon Dioxide Level 27 mmol/L (20-31) Anion Gap 8 (5-15) Blood Urea Nitrogen 21 mg/dL (9-23) Creatinine 0.97 mg/dL (0.550-1.02) Glomerular Filtration Rate Calc 68 mL/min (>90) BUN/Creatinine Ratio 21.6 (10.0-20.0) Serum Glucose 110 mg/dL (74-106) Calcium Level 8.5 mg/dL (8.7-10.4) Vancomycin Level Trough 19.3 ug/mL (5-10) Random Vancomycin Level 5.1 ug/mL (5-10) Test 05/20/25 09:09 05/20/25 01:20 05/19/25 23:10 05/19/25 22:10 Erythrocyte Sedimentation Rate 87 mm/hr (0-20) Prothrombin Time 11.0 sec (9.3-11.8) Prothrombin Time INR 1.04 (0.9-1.15) Hemoglobin A1c > 14.0 % A1C (<5.7) Total Bilirubin 0.2 mg/dL (0.2-1.0) Aspartate Amino Transferase (AST) 22 U/L (13-40) Alanine Aminotransferase (ALT) 27 U/L (7-40) Alkaline Phosphatase 236 U/L (46-116) C-Reactive Protein High Sensitivity 9.91 mg/dL (<1.0) Total Protein 6.7 g/dL (5.7-8.2) Albumin 3.6 g/dL (3.2-4.8) Thyroid Stimulating Hormone (TSH) 3.67 uIU/mL (0.55-4.78) Urine Opiates Screen Neg (NEGATIVE) Urine Fentanyl Screen Neg (NEGATIVE) Urine Barbiturates Screen Neg (NEGATIVE) Urine Phencyclidine Screen Neg (NEGATIVE) Urine Amphetamines Screen Neg (NEGATIVE) Urine Benzodiazepines Screen Neg (NEGATIVE) Urine Cocaine Screen Neg (NEGATIVE) Urine Cannabinoids Screen Neg (NEGATIVE) Plasma/Serum Blood Alcohol < 3.0 mg/dL (<10) Urine Color Colorless (Yellow) Urine Clarity Clear (Clear) Urine pH 5.5 (5.0-9.0) Urine Specific Franklin 1.025 (1.001-1.035) Urine Protein Negative (Negative) Urine Ketones Negative (Negative) Urine Blood Negative /uL (Negative) Urine Nitrite Negative (Negative) Urine Bilirubin Negative (Negative) Urine Urobilinogen Normal mg/dL (Negative) Urine Leukocyte Esterase Negative /uL (Negative) Urine RBC 1 /hpf (0 - 4) Urine Microscopic WBC < 1 /HPF (0-5) Urine Squamous Epithelial Cells None seen /hpf (<5) Urine Bacteria None seen /hpf (None Seen) Urine Glucose 4+ mg/dL (Normal) Troponin I High Sensitivity < 3 ng/L (</=34) Blood Gas Specimen Type Arterial Blood Gas Sample Site Right radial Blood Gas Patient Temperature 37.0 Arterial Blood Date Drawn [id number] Arterial Blood pH 7.519 (7.350-7.450) Arterial Blood Partial Pressure CO2 32.5 mmHg (32.0-45.0) Arterial Blood Partial Pressure O2 125.7 mmHg (83.0-108.0) Arterial Blood HCO3 25.9 mmol/L (21.0-28.0) Arterial Blood Oxygen Saturation 98.8 % (94.0-98.0) Arterial Blood Base Excess 3.4 mmol/L (-2.0-3.0) Arterial Blood Oxyhemoglobin 97.4 % (94.0-98.0) Arterial Blood Carboxyhemoglobin 0.9 % (0.5-1.5) Arterial Blood Methemoglobin 0.5 % (0.0-1.5) Vic Test Modified Blood Gas Total Hemoglobin 12.30 g/dL (12.0-16.0) Blood Gas Liter Flow 2.00 Blood Gas Modality Nasal cannula FiO2 % 28.0 Test 05/19/25 22:09 Lactic Acid Level 1.4 mmol/L (0.4-2.0) B-Type Natriuretic Peptide 148.99 pg/mL (0-100) Beta-Hydroxybutyric Acid 0.256 mmol/L (< 0.4) Other Laboratory Tests 05/23/25 06:10 Brief Hx & Hospital Course: Brief History: Dayana Juarez is a 65-year-old female with past medical history of diabetes, scoliosis, depression, hypothyroidism, presented to the ER with chief complain of pain in left foot. She reported the pain started last week when she started wearing a new pair of shoes. The pain continued to worsen, making it difficult for her to move around. She saw her wound worsening, with presence of purulence, which urged her visit to ER. She reports not being compliant on insulin. Hospital course: She was admitted along the line of sepsis due to plantar foot abscess. Managed with pain medications, fluid resuscitation and IV cefepime and vancomycin. An x-ray foot was done revealing Diffuse forefoot soft tissue swelling with possible erosion at the base of the 2nd proximal phalanx concerning for osteomyelitis. Recommend MRI of the forefoot. MRI left foot revealed: Wound of the plantar aspect of the forefoot with adjacent fluid collection, possible abscess. Surgery was consulted, recommended multiple I&Ds will be necessary to save the limb. She underwent to I and D procedures. Wound sample sent for culture and sensitivity, reported sensitivity to amoxicillin clavulanate. She is stable now. We will discharge her on oral antibiotics. Counseled on importance of medication adherence. Discharge diagnosis: Sepsis present on admission, due to wound with abscess on plantar surface of the left foot Cellulitis with purulence of left foot, possible Plantar wound with abscess on left foot, possible Diabetic foot ulcer, possible Neutrophilic leukocytosis Hypotension Uncontrolled, insulin-dependent Diabetes mellitus Hyperglycemia Medication noncompliance Normocytic, normochromic anemia, unspecified Hypocalcemia Hyponatremia Hypochloremia Diabetic nephropathy, possible Discharge plan: Follow-up in discharge clinic in 1 week Please follow with PCP in 1 week Please follow with Podiatry outpatient Continue amoxicillin lab 875 mg twice daily for 14 days Take insulin as advised You can take acetaminophen [id number] as needed for pain Continue home medications Routine foot care as an outpatient Condition at Discharge: Stable Final Diagnosis/Problems List Sepsis present on admission, due to wound with abscess on plantar surface of the left foot Discharge Disposition: Home Discharge Instruct/Medications Diet: Consistent carbohydrate Activity: No Restrictions, As Tolerated Scheduled Amoxicillin & Pot Clavulanate (Amoxicillin/Potassium Cla), 875 MG PO BID Amoxicillin & Pot Clavulanate (Augmentin Tablet), 875 MG PO BID Insulin Glargine (Basaglar Kwikpen), 20 UNIT SC HS Insulin Glargine-Yfgn (Insulin Glargine), 20 UNIT SC HS Insulin Lispro (Humalog Kwikpen), 6 UNIT SC AC Lovastatin (Lovastatin), 10 MG PO QDAC, (Reported) Lovastatin (Lovastatin), 10 MG PO DAILY Metformin Hydrochloride (Metformin Hcl), 1,000 MG PO DAILY Scheduled PRN Insulin Lispro (Humalog Kwikpen), 0 SC AC PRN Miscellaneous Medications Insulin Lispro (Insulin Lispro Kwikpen), 0 SC Discontinued Medications Metformin Hydrochloride (Metformin Hcl), 1,000 MG PO QDAC, (Reported) Discharge Statement: "Patient was advised to return to the ER or call 911 if any headaches, dizziness, shortness of breath, chest pain, abdominal pain, bleeding, fevers, or worsening of medical condition. Patient was counseled about treatment plan, medications, possible side effects, patientverbalized understanding. All questions were answered to the best of my ability. This discharge took greater then 30 minutes in planning, reviewing documentation, counseling the patient, and discussing with other team members." ASSESSMENT ASSESSMENT Assessment same as preop Date of Service: May 24, 2025 Billing Provider: ALEE DE JESUS MD Common Visit Codes: 90565-YGM/OBS DISCH DAY >30min ELI VILLANUEVA RESIDENT May 24, 2025 15:41 ALEE DE JESUS MD May 26, 2025 21:08
[2025-05-24] MEDS ORDERED: AMOX875T4 PO (16:17)
[2025-05-24] MEDS ORDERED: INSU1INJ19 SC (17:37)
[2025-05-24] MEDS ORDERED: INSU100I4 SC (17:37)
[2025-05-25] MEDS ORDERED: METF-370 PO (11:04)
[2025-05-25] MEDS ORDERED: INSU100I54 SC (11:04)
[2025-05-25] MEDS ORDERED: INSU100I70 SC (11:04)
[2025-05-25] MEDS ORDERED: LOVA20TA4 PO (11:04)
[2025-05-25] MEDS ORDERED: AUG875T PO (11:04)
== END 2025-05-24 18:50 | disposition home or self-care (01) | DRG 710 ==
LOC: EDUNIT# 21:01 → EDBD 21:01 → ER 21:01 → EDBD 05-20 02:54 → OVERFLOW 05-20 02:54 → ER 05-20 02:56 → EAST 05-20 02:56
PROVIDERS: ADMIT Student in an Organized Health Care Education/Training Program; ATTEND Student in an Organized Health Care Education/Training Program
PROC: 0J9R0ZZ Drainage of Left Foot Subcutaneous Tissue and Fascia, Open Approach (ICD-10-PCS; 2025-05-20)
PROC: 0J9R0ZZ Drainage of Left Foot Subcutaneous Tissue and Fascia, Open Approach (ICD-10-PCS; 2025-05-23)
PROC: 0HRNXK3 Replacement of Left Foot Skin with Nonautologous Tissue Substitute, Full Thickness, External Approach (ICD-10-PCS; principal; 2025-05-23 13:34)
DX: A41.9 Sepsis, unspecified organism (principal); M72.6 Necrotizing fasciitis; E87.3 Alkalosis; E87.1 Hypo-osmolality and hyponatremia; L03.116 Cellulitis of left lower limb; E83.51 Hypocalcemia; E11.21 Type 2 diabetes mellitus with diabetic nephropathy; L02.612 Cutaneous abscess of left foot; E11.65 Type 2 diabetes mellitus with hyperglycemia; E11.621 Type 2 diabetes mellitus with foot ulcer; D64.9 Anemia, unspecified; I10 Essential (primary) hypertension; E03.9 Hypothyroidism, unspecified; G40.909 Epilepsy, unspecified, not intractable, without status epilepticus; R91.1 Solitary pulmonary nodule; E11.40 Type 2 diabetes mellitus with diabetic neuropathy, unspecified; L97.529 Non-pressure chronic ulcer of other part of left foot with unspecified severity; Z87.11 Personal history of peptic ulcer disease; Z79.84 Long term (current) use of oral hypoglycemic drugs; Z98.891 History of uterine scar from previous surgery; Z91.148 Patient's other noncompliance with medication regimen for other reason; Z79.899 Other long term (current) drug therapy
CPT/HCPCS: 36415; 36600; 71045; 73630; 73718; 80048; 80053; 80202; 80307; 80320; 81001; 82010; 82565; 82805; 82962; 83036; 83605; 83880; 84443; 84484; 85025; 85610; 85652; 86141; 87040; 87070; 87075; 87077; 87186; 87205; 93005; 96361; 96374; 97163; 99291; G0378; J1100; J1815; J1885; J2250; J2405; J2704; J3490

== ENCOUNTER 2025-08-18 19:32 | Inpatient (IN) | payer MEDICAID ==
[~2025-08-18] VITALS: Ht 149.9 cm; Wt 47.9 kg
[~2025-08-18 19:32] MED LIST changes: +AMOX875T4 PO; +AUG875T PO; +INSU100I4 SC; +INSU100I54 SC; +INSU100I70 SC; +INSU1INJ19 SC; +LOVA20TA4 PO; +METF-370 PO; -METF-372 PO
--- NOTE | 2025-08-18 19:42 | ECG ---
[facility] Test Date: 2025-08-18 Test Time: 19:37:15 Pat Name: DEB BUCKLEY Department: [facility] ED Patient ID: [facility]-[id number] Room: 0289T Gender: F Apns: rimma : 1965 Requested By: JOSE RODRIGUEZ Order Number: [id number] Reading MD: Brian Moctezuma Measurements Intervals Henley Rate: 69 P: 63 SD: 125 QRS: 64 QRSD: 78 T: 81 QT: 413 QTc: 443 Interpretive Statements Sinus rhythm ST elevation, consider inferior injury Electronically Signed On 08-20-2025 13:37:34 PST by Brian Moctezuma Please click the below link to view image of tracing.
--- NOTE | 2025-08-18 20:02 | ED.PDOC ---
GI ASSESSMENT HPI Comments This is a 60 year old female IRENE presenting to the ED with chief complaint of abdominal pain. Patient reports that she has been experiencing RUQ abdominal pain with associated nausea since Tuesday. Patient relays that she drank heavily on Tuesday and her pain is currently an 8/10. EMS states they provided 8mg of Zofran IV and 4mg of Zofran PO for relief in nausea. EMS notes patient's accucheck was noted to be 394 en route. Patient denies any vomiting, diarrhea, fever, chills, chest pain, SOB, hematemesis, or dysuria. Chief Complaint: Abdominal Pain Time Seen by MD: 19:59 Primary Care Provider: DR. CERDA Reviewed Notes: Nurses Notes, Business Support Associate Notes, Medications, Allergies Allergies: Coded Allergies: NO KNOWN ALLERGIES (Unverified , 01/22/13) Home Meds Active Scripts Metformin Hydrochloride (Metformin Hcl) 500 Mg Tab, 1000 MG PO DAILY for 30 Days, #60 TAB 0 Refills Prov:DANI ETIENNE 05/25/25 Lovastatin (Lovastatin) 20 Mg Tab, 10 MG PO DAILY for 30 Days, #15 TAB 0 [facility] 05/25/25 Insulin Lispro (Insulin Lispro Kwikpen) 100 Unit/Ml Inj, 0 SC for 30 Days, #5 INJ 71-119 No additional insulin. 120-150 2 units. 151-200 4 units. 201-250 6 units. 251-300 8 units. 301-350 10 units. Greater than 351 12 units and call doctors office or come to emergency room. Prov:DANI ETIENNE 05/25/25 Insulin Glargine-Yfgn (Insulin Glargine) 100 Unit/Ml Inj, 20 UNIT SC HS for 30 Days, #5 INJ 0 Refills Prov[facility]/25 Amoxicillin & Pot Clavulanate (AUGMENTIN TABLET) 875 Mg Tb, 875 MG PO BID for 14 Days, #28 TAB 0 [facility]ills [facility] 05/25/25 Insulin Lispro (Humalog Kwikpen) 100 Unit/Ml Inj, 0 SC AC PRN for 30 Days, INJ 71-119 No additional insulin. 120-150 2 units. 151-200 4 units. 201-250 6 units. 251-300 8 units. 301-350 10 units. Greater than 351 12 units and call doctors office or come to emergency room. Prov:WES MARIE 05/24/25 Insulin Lispro (Humalog Kwikpen) 100 Unit/Ml Inj, 6 UNIT SC AC for 30 Days, INJ Prov:WES MARIE RESIDENT 05/24/25 Insulin Glargine (Basaglar Kwikpen) 100 Unit/Ml Inj, 20 UNIT SC HS for 30 Days, INJ Prov:WES MARIE 05/24/25 Amoxicillin & Pot Clavulanate (Amoxicillin/Potassium Cla) 875 Mg Tab, 875 MG PO BID for 14 Days, #28 TAB Prov:WES MARIE 05/24/25 Reported Medications Lovastatin (Lovastatin) 10 Mg Tab, 10 MG PO QDAC 04/02/13 Information Source: Patient, Emergency Med Personnel Mode of Arrival: EMS Timing: Days Duration: Since onset Prehospital treatment: None Quality: Aching Vomitus: None Stool: Normal Severity: Moderate Recent: None Recent Hx of: None Pain Location: RUQ Modifying Factors: Nothing Associated sign and symptoms: Nausea, Abdominal Pain Past Medical History PAST MEDICAL HISTORY: DM, High Lipids, HTN, Liver, PUD, Seizures, Thyroid Past Medical History (Other): AAA, Scoliosis Surgical History: , Hernia Repair Surgical History (Other): Lt Foot surgery BOILER ERECTOR History: No Pertinent BOILER ERECTOR History Family History Family History: No family hx of Cancer, No family hx of DM Social History Smoker: Non-Smoker Alcohol: Heavy Drugs: Denies Drug Use Lives In: Home Constitutional: denies: chills, diaphoresis, fatigue, fever, malaise, sweats, weakness, others EENTM: denies: blurred vision, double vision, ear bleeding, ear discharge, ear drainage, ear pain, ear ringing, eye pain, eye redness, hearing loss, mouth pain, mouth swelling, nasal discharge, nose bleeding, nose congestion, nose pain, photophobia, tearing, throat pain, throat swelling, voice changes, others Respiratory: denies: cough, hemoptysis, orthopnea, SOB at rest, shortness of breath, SOB with excertion, stridor, wheezing, others Cardiovascular: denies: chest pain, dizzy spells, diaphoresis, Dyspnea on exertion, edema, irregular heart beat, left arm pain, lightheadedness, palpitations, PND, syncope, others Gastrointestinal: reports: abdominal pain, nausea; denies: abdomen distended, blood streaked bowels, constipated, diarrhea, dysphagia, difficulty swallowing, hematemesis, melena, poor appetite, poor fluid intake, rectal bleeding, rectal pain, vomiting, others Genitourinary: denies: abnormal vagina bleeding, burning, dyspareunia, dysuria, flank pain, frequency, hematuria, incontinence, pain, , vagina discharge, urgency, others Neurological: denies: dizziness, fainting, headache, left sided numbness, left sided weakness, numbness, paresthesia, pre-existing deficit, right sided numbness, right sided weakness, seizure, speech problems, tingling, tremors, weakness, others Musculoskeletal: denies: back pain, gout, joint pain, joint swelling, muscle pain, muscle stiffness, neck pain, others Integumetry: denies: bruises, change in color, change in hair/nails, dryness, laceration, lesions, lumps, rash, wounds, others Allergic/Immunocompromised: denies: Difficulty Healing, Frequent Infections, Hives, Itching, others Hematologic/Lymphatic: denies: anemia, blood clots, easy bleeding, easy bruising, swollen glands, others Endocrine: denies: excessive hunger, excessive sweating, excessive thirst, excessive urination, flushing, intolerance to cold, intolerance to heat, unexplained weight gain, unexplained weight loss, others Psychiatric: denies: anxiety, bipolar disorder, depression, hopeless, panic disorder, schizophrenia, sleepless, suicidal, others All Other Systems: Reviewed and Negative Physical Exam General Appearance: Moderate Distress HEENT: Normal ENT Inspection, Pharynx Normal, TMs Normal Neck: Full Range of Motion, Non-Tender, Normal, Normal Inspection Respiratory: Chest Non-Tender, Lungs Clear, No Accessory Muscle Use, No Respiratory Distress, Normal Breath Sounds Cardiovascular: No Edema, No JVD, No Murmur, No Gallop, Normal Peripheral Pulses, Regular Rate/Rhythm Breast Exam: Deferred Gastrointestinal: Epigastric, No Organomegaly, No Pulsatile Mass, Normal Bowel Sounds, Soft, Tenderness Genitalia: Deferred Pelvic: Deferred Rectal: Deferred Extremities: No calf tenderness, Normal capillary refill, Normal inspection, Normal range of motion, Non-tender, No pedal edema Musculoskeletal : Apperance: Normal Neurologic: Alert, underwear welter II-XII nml as Tested, No Motor Deficits, Normal Affect, Normal Mood, No Sensory Deficits Cerebellar Function: Normal Reflexes: Normal Skin: Dry, Normal Color, Warm Lymphatic: No Adenopathy Was a procedure done? Was a procedure done?: No GI differential Dx Differential Diagnosis: Gastritis/PUD, Gastroenteritis, Inflammatory BD, Pancreatitis, UTI, Electrolyte Imbalance, Food Poisoning X-Ray, Labs, Meds, VS Vital Signs Date Time Temp Pulse Resp B/P (MAP) Pulse Ox O2 Delivery O2 Flow Rate FiO2 08/18/25 19:37 69 08/18/25 19:32 98.3 71 20 162/83 97 98.3 Lab Test 08/18/25 20:08 Range/Units White Blood Count 7.0 4.4-10.8 10^3/uL Red Blood Count 5.13 4.0-5.20 10^6/uL Hemoglobin 14.8 12.2-16.2 g/dL Hematocrit 43.4 36.0-46.0 % Mean Corpuscular Volume 84.5 80.0-100.0 fL Mean Corpuscular Hemoglobin 28.9 28.0-32.0 pg Mean Corpuscular Hemoglobin Concent 34.2 32.0-36.0 g/dL Red Cell Distribution Width 13.7 11.8-14.3 % Platelet Count 243 140-450 10^3/uL Mean Platelet Volume 8.1 6.9-10.8 fL Neutrophils (%) (Auto) 70.8 37.0-80.0 % Lymphocytes (%) (Auto) 21.8 10.0-50.0 % Monocytes (%) (Auto) 6.6 0.0-12.0 % Eosinophils (%) (Auto) 0.2 0.0-7.0 % Basophils (%) (Auto) 0.6 0.0-2.0 % Neutrophils # (Auto) 5.0 1.6-8.6 10 ^3/uL Lymphocytes # (Auto) 1.5 0.4-5.4 10 ^3/uL Monocytes # (Auto) 0.5 0-1.3 10 ^3/uL Eosinophils # (Auto) 0 0-0.8 10 ^3/uL Basophils # (Auto) 0 0-0.2 10 ^3/uL Nucleated Red Blood Cells 0.0 % Sodium Level 128 L 136-145 mmol/L Potassium Level 4.1 3.5-5.1 mmol/L Chloride Level 88 L 98-107 mmol/L Carbon Dioxide Level 30 20-31 mmol/L Anion Gap 10 5-15 Blood Urea Nitrogen 28 H 9-23 mg/dL Creatinine 1.56 H 0.550-1.02 mg/dL Glomerular Filtration Rate Calc 38 >90 mL/min BUN/Creatinine Ratio 17.9 10.0-20.0 Serum Glucose 361 H 74-106 mg/dL Calcium Level 9.2 8.7-10.4 mg/dL Total Bilirubin 0.6 0.2-1.0 mg/dL Aspartate Amino Transferase (AST) 20 13-40 U/L Alanine Aminotransferase (ALT) 28 7-40 U/L Alkaline Phosphatase 130 H 46-116 U/L Total Protein 7.9 5.7-8.2 g/dL Albumin 4.4 3.2-4.8 g/dL Lipase 67 H 12-53 U/L IV Hep-Lock was established The patient is being admitted to the hospitalist The CBC is within normal limits The chemistry panel shows hyperglycemia and elevated lipase consistent with acute pancreatitis The patient was given morphine 4 mg IV push for the pain The patient was given Compazine 10 mg IV push for the nausea The patient was given Protonix 40 mg IV push The patient is being admitted at this time Images Reviewed?: Images reviewed and evaluated by me Time of 1ST Reevaluation: 21:07 Reevaluation 1ST: Unchanged Patient Education/Counseling: Diagnosis, Treatment, Prognosis Family Education/Counseling: No Family Present SEPSIS Sepsis Screen Date sepsis recognized/suspect: Aug 18, 2025 Time Sepsis recognized/suspect: 1931 Recent Procedure: No On Antibiotic Therapy: No Respiratory Rate >20: No Heart Rate >90: No Temp<36 C (96.8 F) or >38.3 C: No SBP <90 or MAP <65 mmHG: No New Acute Mental Status Change: No Is the patient on CPAP, BIPAP,: No Physician Orders Urinalysis (08/18/25 19:57) Heplock Iv (08/18/25 19:57) Metal Machinist (08/18/25 19:57) Blood Pressure (08/18/25 19:57) Pulse Oximetry (08/18/25 19:57) Gallbladder (08/18/25 19:57) Vital Signs Date Time Temp Pulse Resp B/P (MAP) Pulse Ox O2 Delivery O2 Flow Rate FiO2 08/18/25 19:37 69 08/18/25 19:32 98.3 71 20 162/83 97 98.3 Laboratory Tests Test 08/18/25 20:08 White Blood Count 7.0 10^3/uL (4.4-10.8) Departure 1 Departure Time of Disposition: 21:06 Impression: Primary Impression: Intractable abdominal pain Additional Impression: Acute pancreatitis Qualified Codes: K85.20 - Alcohol induced acute pancreatitis without necrosis or infection Disposition: ADMITTED INPATIENT Admit to: Med Surg Condition: Fair Critical Care Note Critical Care Time?: No Stability Stability form required: No Heart Score Heart Score: Heart Score Response (Comments) Value History N/A 0 EKG N/A 0 Age N/A 0 Risk Factors N/A 0 Troponin N/A 0 Total 0 I personally scribed for JOSE RODRIGUEZ MD ([email or web address]) on 08/18/25 at 20:02. Electronically submitted by Lenin Ignacio ([email or web address]). JOSE RODRIGUEZ MD Aug 18, 2025 20:02
[2025-08-18 20:20] LABS: Hematocrit 43.4 % (36.0-46.0); Hemoglobin 14.8 g/dL (12.2-16.2); Mean Corpuscular Hemoglobin 28.9 pg (28.0-32.0); Mean Corpuscular Volume 84.5 fL (80.0-100.0); Nucleated Red Blood Cells % 0.0 %
[2025-08-18 20:33] LABS: Alanine Aminotransferase 28 U/L (7-40); Albumin 4.4 g/dL (3.2-4.8); Anion Gap 10 (5-15); BUN/Creatinine Ratio 17.9 (10.0-20.0); Calcium 9.2 mg/dL (8.7-10.4); Carbon Dioxide 30 mmol/L (20-31); Potassium 4.1 mmol/L (3.5-5.1); Total Protein 7.9 g/dL (5.7-8.2)
[2025-08-18 20:34] LABS: Bilirubin, Total 0.6 mg/dL (0.2-1.0)
[2025-08-18 20:35] LABS: Alkaline Phosphatase 130 U/L (46-116); Blood Urea Nitrogen 28 mg/dL (9-23); Chloride 88 mmol/L (98-107); Glucose 361 mg/dL (74-106); Lipase 67 U/L (12-53); Sodium 128 mmol/L (136-145)
--- NOTE | 2025-08-18 21:39 | DVH ---
INDICATION: pain TECHNIQUE: Multiple real-time sonographic images were obtained of the right upper quadrant. COMPARISON: None FINDINGS: The liver demonstrates diffusely increased echotexture without focal mass lesions. The live r measures 13.0 cm. Normal hepatopetal portal venous flow identified. No evidence of pleural effusion or abdominal ascites. There is no intrahepatic or extrahepatic ductal dilatation. The common duct measures 0.3 cm. The gallbladder is without evidence of stone or sludge. The gallbladder wall measures 0.2 cm and is w ithin normal limits. Negative sonographic gamez's sign. The right kidney measures 8.2 cm. The right kidney is normal in contour, size, and shape. The echogen icity is normal. There is no hydronephrosis. Incidentally noted left renal cyst measures 3.5 x 3.2 x 2.9 cm. The pancreas is not well visualized due to overlying bowel gas. IMPRESSION: 1. Hepatic steatosis. 2. Left renal cyst.
[2025-08-18] MEDS ORDERED: hydrALAZINE HCL 20 MG/ML VL IV PRN (22:00)
[2025-08-18] MEDS ORDERED: DOCUSATE SOD 100 MG CAP PO PRN (22:00)
[2025-08-18] MEDS ORDERED: DEXTROSE (50%) 50ML SYRG IV PRN (22:00)
[2025-08-18] MEDS: PROCHLORPERAZINE EDISYLATE 5 MG/ML 2ML VIAL IV ONE (22:53)
[2025-08-18 22:55] VITALS: PULSE 68; RESP 16; O2SAT 98
[2025-08-18] MEDS: SODIUM CHLORIDE 0.9% 1,000 ML IVB ONE (22:55)
[2025-08-18] MEDS: ONDANSETRON HCL 4 MG/2 ML VIAL IV PRN (22:55)
[2025-08-18] MEDS: MORPHINE SULFATE 4 MG/ML SYR/VIAL IV ONE (22:56)
[2025-08-18] MEDS: PANTOPRAZOLE 40 MG/10 ML VIAL INJ IV ONE (22:56)
--- NOTE | 2025-08-18 22:56 | DVHHP2 ---
History of Present Illness Reason for Visit: Acute abdominal pain History of Present Illness The patient is a 60-year-old female with multiple past medical history including PUD, seizures, diabetes mellitus, and hypertension who presented to [facility] ED with complaint of acute abdominal pain for the past 2 days. Patient reports she has been experiencing abdominal pain rating 8/10 numeric scale, localized in right upper quadrant, associated with nausea. Patient states that she drank alcohol heavily on Tuesday worsening her condition. Patient was seen and evaluated in the ED, laboratory data shows WBC 7.0, platelets 243, sodium 128, potassium 4.1, BUN 28, creatinine 1.56, GFR 38, glucose 361, calcium 9.2, alkaline phos 130, AST 20, ALT 28, total bilirubin 0.6, lipase 67, blood pressure 162/83, heart rate 72, temperature 98.3 F, O2 saturation 97% on room air. Gallbladder ultrasound revealing hepatic steatosis, left renal cysts. Please see medication orders section in the computer. On my assessment, patient denied chest pain, no headache, dizziness, diaphoresis, shortness of breaths, no diarrhea, nausea, vomiting, fever, no chills. Patient was admitted for further evaluation and medical management. Past Medical History DM, High Lipids, HTN, Liver disease, PUD, Seizures, Thyroid, AAA, Scoliosis Past Surgical History , Hernia Repair, Lt Foot surgery Family History Reviewed, noncontributory to the management of this case. Past Social History The patient lives at home, drinks alcohol heavily, denies smoking or illicit drugs abuse. Review of Systems Constitutional: Yes: Weakness; No: Fever, Chills, Sweats, Malaise, Other Eyes: No: Pain, Vision change, Conjunctivae inflammation, Eyelid inflammation, Other, Redness ENT: No: Ear pain, Ear discharge, Nose pain, Nose discharge, Nose congestion, Mouth pain, Mouth swelling, Throat pain, Throat swelling, Other Respiratory: No: Cough, Dry, Shortness of breath, SOB with excertion, Wheezing, Hemoptysis, Pleuritic Pain, Sputum, Wheezing, Other Cardiovascular: No: Chest Pain, Palpitations, Orthopnea, Paroxysmal Noc. Dyspnea, Edema, Lt Headedness, Other Gastrointestinal: Nausea, Abdominal Pain; No: Vomiting, Diarrhea, Constipation, Melena, Hematochezia, Other Genitourinary: No Dysuria, No Frequency, No Incontinence, No Hematuria, No Retention, No Other Musculoskeletal: No: other, neck pain, shoulder pain, arm pain, back pain, hand pain, leg pain, foot pain Skin: No: Rash, Lesions, Jaundice, Bruising, Other Neurological: No: Weakness, Numbness, Incoordination, Change in speech, Confusion, Seizures, Other Allergies: Coded Allergies: NO KNOWN ALLERGIES (Unverified , 01/22/13) Medications Current Medications Medications Dose Ordered Sig/Sean Route Start Time Stop Time Status Last Admin Dose Admin Pantoprazole Sodium 40 mg DAILY IV 08/19/25 10:00 Amlodipine Besylate 5 mg DAILY PO 08/19/25 10:00 Hydralazine HCl 10 mg Q6HP PRN IV 08/18/25 22:00 Diagnostic Test (Pha) 1 strip IQ4HR 08/19/25 00:00 Insulin Human Regular IQ4HR SC 08/19/25 00:00 Dextrose 50 ml UD PRN IV 08/18/25 22:00 Sodium Chloride 1,000 ml @ 120 mls/hr Q8H20M IV 08/18/25 22:00 Acetaminophen/ Hydrocodone Bitart 1 tab Q4HP PRN PO 08/18/25 22:00 Ondansetron HCl 4 mg Q4HP PRN IV 08/18/25 22:00 Docusate Sodium 100 mg BIDPRN PRN PO 08/18/25 22:00 Acetaminophen 650 mg Q6HP PRN PO 08/18/25 22:00 Morphine Sulfate 2 mg Q30M PRN IV 08/18/25 23:00 UNV Exam Vital Signs Vital Signs Date Time Temp Pulse Resp B/P (MAP) Pulse Ox O2 Delivery O2 Flow Rate FiO2 08/18/25 22:38 72 19 157/92 (113) 100 08/18/25 22:01 97.9 97.9 General Appearance: Alert, Oriented X3, Cooperative, No acute distress HEENT: Atraumatic, PERRLA, EOMI, Mucous membr. moist/pink Respiratory: Normal air movement Cardiovascular: Regular rate, Normal S1, Normal S2, No murmurs Abdominal: Normal bowel sounds, Soft, No hepatospenomegaly, No masses, Other (Reports tenderness) Extremities: No clubbing, No cyanosis, No edema, Normal pulses, No tendernes s/swelling Skin: No rashes, No significant lesion Neuro: Normal speech, Normal tone, Sensation intact, Cranial nerves 3-12 NL, Reflexes 2+, Other (Generalized weakness) Psych/Mental Status: Mental status NL, Mood NL Labs/Xrays Labs Test 08/18/25 20:08 Range/Units White Blood Count 7.0 4.4-10.8 10^3/uL Red Blood Count 5.13 4.0-5.20 10^6/uL Hemoglobin 14.8 12.2-16.2 g/dL Hematocrit 43.4 36.0-46.0 % Mean Corpuscular Volume 84.5 80.0-100.0 fL Mean Corpuscular Hemoglobin 28.9 28.0-32.0 pg Mean Corpuscular Hemoglobin Concent 34.2 32.0-36.0 g/dL Red Cell Distribution Width 13.7 11.8-14.3 % Platelet Count 243 140-450 10^3/uL Mean Platelet Volume 8.1 6.9-10.8 fL Neutrophils (%) (Auto) 70.8 37.0-80.0 % Lymphocytes (%) (Auto) 21.8 10.0-50.0 % Monocytes (%) (Auto) 6.6 0.0-12.0 % Eosinophils (%) (Auto) 0.2 0.0-7.0 % Basophils (%) (Auto) 0.6 0.0-2.0 % Neutrophils # (Auto) 5.0 1.6-8.6 10 ^3/uL Lymphocytes # (Auto) 1.5 0.4-5.4 10 ^3/uL Monocytes # (Auto) 0.5 0-1.3 10 ^3/uL Eosinophils # (Auto) 0 0-0.8 10 ^3/uL Basophils # (Auto) 0 0-0.2 10 ^3/uL Nucleated Red Blood Cells 0.0 % Sodium Level 128 L 136-145 mmol/L Potassium Level 4.1 3.5-5.1 mmol/L Chloride Level 88 L 98-107 mmol/L Carbon Dioxide Level 30 20-31 mmol/L Anion Gap 10 5-15 Blood Urea Nitrogen 28 H 9-23 mg/dL Creatinine 1.56 H 0.550-1.02 mg/dL Glomerular Filtration Rate Calc 38 >90 mL/min BUN/Creatinine Ratio 17.9 10.0-20.0 Serum Glucose 361 H 74-106 mg/dL Calcium Level 9.2 8.7-10.4 mg/dL Total Bilirubin 0.6 0.2-1.0 mg/dL Aspartate Amino Transferase (AST) 20 13-40 U/L Alanine Aminotransferase (ALT) 28 7-40 U/L Alkaline Phosphatase 130 H 46-116 U/L Total Protein 7.9 5.7-8.2 g/dL Albumin 4.4 3.2-4.8 g/dL Lipase 67 H 12-53 U/L PATIENT: DEB VAZQUEZ DACCT: [id number] UNIT: [id number] : 1965 LOC: ER ROOM / BED: / AGE / SEX: 60 / F ADM STATUS: REG ER SERVICE 56 ORDERING PHYSICIAN: JOSE RODRIGUEZ MD PROCEDURE(s): GBUS - GALLBLADDER REASON: pain ORDER NUMBER(s): [id number], ACCESSION NUMBER(s): [id number] INDICATION: pain TECHNIQUE: Multiple real-time sonographic images were obtained of the right upper quadrant. COMPARISON: None FINDINGS: The liver demonstrates diffusely increased echotexture without focal mass lesions. The liver measures 13.0 cm. Normal hepatopetal portal venous flow identified. No evidence of pleural effusion or abdominal ascites. There is no intrahepatic or extrahepatic ductal dilatation. The common duct measures 0.3 cm. The gallbladder is without evidence of stone or sludge. The gallbladder wall measures 0.2 cm and is within normal limits. Negative sonographic gamez's sign. The right kidney measures 8.2 cm. The right kidney is normal in contour, size, and shape. The echogenicity is normal. There is no hydronephrosis. Incidentally noted left renal cyst measures 3.5 x 3.2 x 2.9 cm. The pancreas is not well visualized due to overlying bowel gas. IMPRESSION: 1. Hepatic steatosis. 2. Left renal cyst. SEPSIS Sepsis Screen Date sepsis recognized/suspect: Aug 18, 2025 Time Sepsis recognized/suspect: 1931 Recent Procedure: No On Antibiotic Therapy: No Respiratory Rate >20: No Heart Rate >90: No Temp<36 C (96.8 F) or >38.3 C: No SBP <90 or MAP <65 mmHG: No New Acute Mental Status Change: No Is the patient on CPAP, BIPAP,: No Physician Orders Urinalysis (08/18/25 19:57) Heplock Iv (08/18/25 19:57) Dry Room Operator (08/18/25 19:57) Blood Pressure (08/18/25 19:57) Pulse Oximetry (08/18/25 19:57) Gallbladder (08/18/25 19:57) Pantoprazole (Protonix) (08/19/25 10:00) Amlodipine Tablet (Norvasc Tablet) (08/19/25 10:00) Hydralazine Injection (Apresoline Inject (08/18/25 22:00) Glucose Blood (Accu-Chek Comfort Curve T (08/19/25 00:00) Insulin R (Human) (Insulin R) (08/19/25 00:00) Dextrose 50% Syringe (08/18/25 22:00) Allergies (08/18/25 21:52) Code Status (08/18/25:52) Sodium Chloride 0.9% (08/18/25 22:00) Oxygen Per Hour (08/18/25 21:52) Hydrocodone-Acet 5/325mg Tab ([place] 5/32 (08/18/25 22:00) Ondansetron Hcl (Zofran) (08/18/25 22:00) Docusate Sodium Capsule (Colace Capsule) (08/18/25 22:00) Complete Blood Count (08/19/25 04:00) Comprehensive Metabolic Panel (08/19/25 04:00) Condition: Serious (08/18/25 21:52) Acetaminophen Tablet (Tylenol Tablet) (08/18/25 22:00) Clear Liq Diet (08/19/25 Breakfast) Bedrest With Bathroom Privileg (08/18/25 21:52) Sequential Compression Device (08/18/25 ) Admit (08/18/25 22:54) Nitroglycerin Sublingual (Ntrostat Subli (08/18/25 23:00) Morphine Sulfate Injection (08/18/25 23:00) Stat Ekg For Chest Pain (08/18/25 22:54) Notify Md Of Changes From Base (08/18/25 22:54) Field Checker For 24 Hours (08/18/25 22:54) Emergency Dysrhythmia Protocol (08/18/25 22:54) Rhythm Strips Once Every Shift (08/18/25 22:54) Oxygen By Nasal Cannula (08/18/25 22:54) Vital Signs Date Time Temp Pulse Resp B/P (MAP) Pulse Ox O2 Delivery O2 Flow Rate FiO2 08/18/25 22:38 72 19 157/92 (113) 100 08/18/25 22:01 97.9 79 19 123/59 (80) 99 97.9 08/18/25 19:37 69 08/18/25 19:32 98.3 71 20 162/83 97 98.3 Laboratory Tests Test 08/18/25 20:08 White Blood Count 7.0 10^3/uL (4.4-10.8) Assessment/Plan Assessment/Plan Intractable abdominal pain Acute pancreatitis Electrolyte imbalance Acute renal injury Uncontrolled type 2 diabetes mellitus Alcohol induced acute pancreatitis without necrosis or infection Plan 1. Admit to telemetry unit 2. Breathing treatment 3. Pain control management 4. Management of fluids and electrolytes 5. Consultation for hospitalist 6. Diagnostic tests gallbladder ultrasound 7. DVT prophylaxis-on aspirin 8. Repeat labs CBC, CMP in a.m. 9. Continue with current medical management 10. Treatment plan discussed with patient and RN. Patient verbalized understanding. Plan discussed with: Patient, Other (RN) My Orders Orders - TELMA TALLEY DNP Procedure Category Date Status Time Pantoprazole PHA 08/19/25 In Process (Protonix) 10:00 Amlodipine Tablet PHA 08/19/25 In Process (Norvasc Tablet) 10:00 Hydralazine Injection PHA 08/18/25 In Process (Apresoline Inject 22:00 Glucose Blood PHA 08/19/25 In Process (Accu-Chek Comfort 00:00 Insulin R (Human) PHA 08/19/25 In Process (Insulin R) 00:00 Dextrose 50% Syringe PHA 08/18/25 In Process 22:00 Allergies JOHAN 08/18/25 In Process 21:52 Code Status CODE 08/18/25 Transmitted 21:52 Sodium Chloride 0.9% PHA 08/18/25 In Process 22:00 Oxygen Per Hour RT 08/18/25 Transmitted 21:52 Hydrocodone-Acet PHA 08/18/25 In Process 5/325mg Tab ([place]olivar 22:00 Ondansetron Hcl PHA 08/18/25 In Process (Zofran) 22:00 Docusate Sodium PHA 08/18/25 In Process Capsule (Colace 22:00 Complete Blood Count LAB 08/19/25 Verified 04:00 Comprehensive LAB 08/19/25 Verified Metabolic Panel 04:00 Condition: Serious JOHAN 08/18/25 In Process 21:52 Acetaminophen Tablet [facility] 08/18/25 In Process (Tylenol Tablet) 22:00 Clear Liq Diet DIET 08/19/25 Transmitted Breakfast Bedrest With Bathroom JOHAN 08/18/25 In Process Privileg 21:52 Sequential JOHAN 08/18/25 In Process Compression Device Admit ADMIT 08/18/25 Transmitted 22:54 Nitroglycerin [facility] 08/18/25 Transmitted Sublingual (Ntrostat 23:00 Morphine Sulfate [facility] 08/18/25 Transmitted Injection 23:00 Stat Ekg For Chest [facility] 08/18/25 Transmitted Pain 22:54 Notify Md Of Changes [facility] 08/18/25 Transmitted From Base 22:54 Field Checker [address] [facility] 08/18/25 Transmitted 24 Hours 22:[address] [facility] 08/18/25 Transmitted Protocol 22:[address] [facility] 08/18/25 Transmitted Every Shift 22:54 Oxygen By Nasal 08/18/25 Transmitted Cannula 22:54 Problem List: (1) Intractable abdominal pain (2) Acute pancreatitis (3) Electrolyte imbalance (4) Acute renal injury (5) Uncontrolled type 2 diabetes mellitus (6) Alcohol induced acute pancreatitis without necrosis or infection Date of Service: Aug 18, 2025 Billing Provider: TELMA TALLEY DNP Common Visit Codes: [id number] INP/OBS CARE (HIGH) TELMA TALLEY DNP Aug 18, 2025 22:56
[2025-08-18] MEDS ORDERED: MORPHINE SULFATE INJ 2 MG/ml SYRG IV PRN (23:00)
[2025-08-18] MEDS ORDERED: NITROGLYCERIN 0.4 MG SL TAB SL PRN (23:00)
[2025-08-19] VITALS (9 sets, daily range): BP systolic 95–136; BP diastolic 54–97; PULSE 51–73; RESP 16–20; TEMP 97.3–99.4; O2SAT 96–100
[2025-08-19] MEDS: ACCU-CHEK COMFORT CURVE STRIP VI SCH ×2 (00:09→17:00)
[2025-08-19] MEDS: SODIUM CHLORIDE 0.9% 1,000 ML IV SCH ×2 (00:09→13:45)
[2025-08-19] MEDS: InsuLIN REG 1unit/0.01ml Soln (100units/ml) SC SCH ×2 (00:42→17:00)
[2025-08-19] MEDS ORDERED: FLUO60TA7 PO (01:37)
[2025-08-19] MEDS ORDERED: METH-1181 PO (01:40)
[2025-08-19] MEDS ORDERED: FLUO20TA42 PO (01:40)
[2025-08-19 05:50] LABS: Hematocrit 41.1 % (36.0-46.0); Hemoglobin 13.9 g/dL (12.2-16.2); Mean Corpuscular Hemoglobin 29.3 pg (28.0-32.0); Mean Corpuscular Volume 86.6 fL (80.0-100.0); Nucleated Red Blood Cells % 0.1 %
[2025-08-19 06:19] LABS: Alanine Aminotransferase 24 U/L (7-40); Alkaline Phosphatase 111 U/L (46-116); Anion Gap 10 (5-15); BUN/Creatinine Ratio 16.5 (10.0-20.0); Blood Urea Nitrogen 22 mg/dL (9-23); Calcium 9.3 mg/dL (8.7-10.4); Carbon Dioxide 29 mmol/L (20-31); Potassium 4.2 mmol/L (3.5-5.1); Total Protein 7.4 g/dL (5.7-8.2)
[2025-08-19 06:20] LABS: Albumin 4.0 g/dL (3.2-4.8); Bilirubin, Total 0.4 mg/dL (0.2-1.0)
[2025-08-19 06:23] LABS: Chloride 96 mmol/L (98-107); Glucose 72 mg/dL (74-106); Sodium 135 mmol/L (136-145)
[2025-08-19] MEDS: PANTOPRAZOLE 40 MG/10 ML VIAL INJ IV SCH (09:32)
[2025-08-19 10:47] LABS: Hepatitis B Surface Antigen Negative (Negative)
[2025-08-19 11:00] LABS: Hepatitis C Antibody Negative (Negative)
[2025-08-19] MEDS ORDERED: DEXTROSE (50%) 50ML SYRG IV PRN (13:45)
--- NOTE | 2025-08-19 13:47 | DVHPN2 ---
Subjective Patient was states that her abdominal pain has improved. Reviewed: Care Plan, H&P, Labs, Medications, Previous Orders Changes from previous H/P or p: No Changes Eyes: No Pain, No Vision change, No Conjunctivae inflammation, No Eyelid inflammation, No Other, No Redness ENT: No Ear pain, No Ear discharge, No Nose pain, No Nose discharge, No Nose congestion, No Mouth pain, No Mouth swelling, No Throat pain, No Throat swelling, No Other Cardiovascular: No Chest Pain, No Palpitations, No Orthopnea, No Paroxysmal Noc. Dyspnea, No Edema, No Lt Headedness, No Other Respiratory: No Cough, No Dry, No Shortness of breath, No SOB with excertion, No Wheezing, No Hemoptysis, No Pleuritic Pain, No Sputum, No Other Gastrointestinal: Nausea; No Vomiting; Abdominal Pain; No Diarrhea, No Constipation, No Melena, No Hematochezia, No Other Genitourinary: No Dysuria, No Frequency, No Incontinence, No Hematuria, No Retention, No Other Musculoskeletal: No other, No neck pain, No shoulder pain, No arm pain, No back pain, No hand pain, No leg pain, No foot pain Skin: No Rash, No Lesions, No Jaundice, No Bruising, No Other Objective Vitals Vital Signs Date Time Temp Pulse Resp B/P (MAP) Pulse Ox O2 Delivery O2 Flow Rate FiO2 08/19/25 09:37 148/90 08/19/25 09:00 97.3 60 16 98 97.3 08/19/25 08:10 Room Air* 0 21 Intake/Output Intake and Output 08/19/25 07:00 Intake Total 0 ml Balance 0 ml Intake Oral 0 ml # Voids 3 # Bowel Movements 1 General Appearance: Alert, Oriented X3, Cooperative, mild distress HEENT: Atraumatic, PERRLA Lungs: Clear to auscultation, Normal air movement Cardiovascular: Normal S1, Normal S2 Abdomen: Normal bowel sounds, Soft, No tenderness, No hepatospenomegaly Musculoskeletal: Normal sensory function, Normal motor function Neuro: Normal gait, Normal speech Skin: Dry, Intact Psych/Mental Status: Mental status NL Medications Current Medications Medications Dose Ordered Sig/Sean Route Start Time Stop Time Status Last Admin Dose Admin Pantoprazole Sodium 40 mg DAILY IV 08/19/25 10:00 08/19/25 09:32 40 MG Amlodipine Besylate 5 mg DAILY PO 08/19/25 10:00 08/19/25 09:37 5 MG Hydralazine HCl 10 mg Q6HP PRN IV 08/18/25 22:00 Diagnostic Test (Pha) 1 strip IQ4HR 08/19/25 00:00 08/19/25 08:00 1 STRIP Insulin Human Regular IQ4HR SC 08/19/25 00:00 08/19/25 00:42 16 UNITS Dextrose 50 ml UD PRN IV 08/18/25 22:00 Sodium Chloride 1,000 ml @ 120 mls/hr Q8H20M IV 08/18/25 22:00 Acetaminophen/ Hydrocodone Bitart 1 tab Q4HP PRN PO 08/18/25 22:00 Ondansetron HCl 4 mg Q4HP PRN IV 08/18/25 22:00 08/18/25 22:55 4 MG Docusate Sodium 100 mg BIDPRN PRN PO 08/18/25 22:00 Acetaminophen 650 mg Q6HP PRN PO 08/18/25 22:00 Nitroglycerin 0.4 mg Q5MINP PRN SL 08/18/25 23:00 Morphine Sulfate 2 mg Q30M PRN IV 08/18/25 23:00 Laboratory Results Laboratory Tests 08/19/25 05:11 Chemistry Test 08/18/25 20:08 08/19/25 05:11 Albumin 4.4 g/dL (3.2-4.8) 4.0 g/dL (3.2-4.8) Calcium Level 9.2 mg/dL (8.7-10.4) 9.3 mg/dL (8.7-10.4) Total Protein 7.9 g/dL (5.7-8.2) 7.4 g/dL (5.7-8.2) Lipid panel Test 08/18/25 20:08 Lipase 67 U/L (12-53) H LFT Test 08/18/25 20:08 08/19/25 05:11 Alanine Aminotransferase (ALT) 28 U/L (7-40) 24 U/L (7-40) Alkaline Phosphatase 130 U/L (46-116) H 111 U/L (46-116) Aspartate Amino Transferase (AST) 20 U/L (13-40) 19 U/L (13-40) Total Bilirubin 0.6 mg/dL (0.2-1.0) 0.4 mg/dL (0.2-1.0) Microbiology Microbiology Date/Time Source Procedure Growth Status 08/19/25 02:10 Nose MRSA Screen - Final Complete Labs and/or images reviewed: Labs reviewed by me, Image(s) reviewed by me Assessment/Plan Assessment/Plan Impression: -abdominal pain, questionable peptic ulcer disease -seizure disorder -acute alcohol intake -diabetes mellitus -left diabetic foot wound -hypoglycemia -scoliosis Plan: -KUB -advanced to consistent carbohydrate diet -continue PPI -regular insulin sliding scale -obtain home medications for reconciliation -repeat labs in a.m. Total time spent with patient discussing and formulating plan of care: 35 minutes. This medical document was created using an electronic medical record system with Koemei dictation system. Although this document has been carefully reviewed, there may still be some phonetic and typographical errors. These areas are purely typographical due to imperfections of the software programs, and do not reflect any compromise in the patient's medical care. Plan discussed with: Patient, Other (RN) My Orders Orders - MARY MULLER NP Procedure Category Date Status Time 0.9% Ns 1000 Ml PHA 08/19/25 Verified 13:45 Kub Abdomen Single XY 08/19/25 Verified View 13:41 Consistent DIET 08/19/25 Verified Carb(Ccho)Diabetes Dinner Glucose Blood PHA 08/19/25 Verified (Accu-Chek Comfort 17:00 Mild Sliding Scale PHA 08/19/25 Verified 17:00 Dextrose 50% Syringe PHA 08/19/25 Verified 13:45 Hemoglobin A1c LAB 08/19/25 Verified 13:41 Date of Service: Aug 19, 2025 Billing Provider: MARY MULLER NP Common Visit Codes: [id number] INP/OBS CARE(HIGH) MARY MULLER NP Aug 19, 2025 13:47
--- NOTE | 2025-08-19 14:40 | DVH ---
Date: 08/19/2025 02:01 PM Examination: XY KUB ABDOMEN SINGLE VIEW History: abdominal pain Comparison: None TECHNIQUE: Frontal views of the abdomen was obtained. FINDINGS: Bowel gas pattern is unremarkable. The lung bases are unremarkable. No acute osseous abnormality identified. IMPRESSION: 1. Nonobstructive bowel gas pattern. 2. Mildly distended stomach with gas. 3. No findings to suggest bowel obstruction.
[2025-08-19] MEDS: HYDROcodone-ACET 5/325MG TAB PO PRN (16:20)
[2025-08-19] MEDS: ACETAMINOPHEN 325 MG TAB PO PRN (20:24)
[2025-08-20] VITALS (8 sets, daily range): BP systolic 102–137; BP diastolic 60–85; PULSE 64–100; RESP 16–19; TEMP 97.7–99; O2SAT 95–100
--- NOTE | 2025-08-20 13:47 | DVHPN2 ---
Subjective Patient denies any abdominal pain. She reported having dizziness yesterday evening prior to being checked for noted hypoglycemia. Reviewed: Care Plan, H&P, Labs, Medications, Previous Orders Changes from previous H/P or p: Changes Eyes: No Pain, No Vision change, No Conjunctivae inflammation, No Eyelid inflammation, No Other, No Redness ENT: No Ear pain, No Ear discharge, No Nose pain, No Nose discharge, No Nose congestion, No Mouth pain, No Mouth swelling, No Throat pain, No Throat swelling, No Other Cardiovascular: No Chest Pain, No Palpitations, No Orthopnea, No Paroxysmal Noc. Dyspnea, No Edema, No Lt Headedness, No Other Respiratory: No Cough, No Dry, No Shortness of breath, No SOB with excertion, No Wheezing, No Hemoptysis, No Pleuritic Pain, No Sputum, No Other Gastrointestinal: Nausea; No Vomiting; Abdominal Pain; No Diarrhea, No Constipation, No Melena, No Hematochezia, No Other Genitourinary: No Dysuria, No Frequency, No Incontinence, No Hematuria, No Retention, No Other Musculoskeletal: No other, No neck pain, No shoulder pain, No arm pain, No back pain, No hand pain, No leg pain, No foot pain Skin: No Rash, No Lesions, No Jaundice, No Bruising, No Other Objective Vitals Vital Signs Date Time Temp Pulse Resp B/P (MAP) Pulse Ox O2 Delivery O2 Flow Rate FiO2 08/20/25 12:42 97.9 65 18 102/69 (80) 99 97.9 08/20/25 08:10 Room Air* 0 21 Intake/Output Intake and Output 08/20/25 07:00 Intake Total 2500 ml Balance 2500 ml Intake Oral 1500 ml IV Total 1000 ml # Voids 3 General Appearance: Alert, Oriented X3, Cooperative, mild distress HEENT: Atraumatic, PERRLA Lungs: Clear to auscultation, Normal air movement Cardiovascular: Normal S1, Normal S2 Abdomen: Normal bowel sounds, Soft, No tenderness, No hepatospenomegaly Musculoskeletal: Normal sensory function, Normal motor function Neuro: Normal gait, Normal speech Skin: Dry, Intact Psych/Mental Status: Mental status NL Medications Current Medications Medications Dose Ordered Sig/Sean Route Start Time Stop Time Status Last Admin Dose Admin Pantoprazole Sodium 40 mg DAILY IV 08/19/25 10:00 08/20/25 08:50 40 MG Amlodipine Besylate 5 mg DAILY PO 08/19/25 10:00 08/20/25 08:49 5 MG Hydralazine HCl 10 mg Q6HP PRN IV 08/18/25 22:00 Acetaminophen/ Hydrocodone Bitart 1 tab Q4HP PRN PO 08/18/25 22:00 08/20/25 08:49 1 TAB Ondansetron HCl 4 mg Q4HP PRN IV 08/18/25 22:00 08/18/25 22:55 4 MG Docusate Sodium 100 mg BIDPRN PRN PO 08/18/25 22:00 Acetaminophen 650 mg Q6HP PRN PO 08/18/25 22:00 08/19/25 20:24 650 MG Nitroglycerin 0.4 mg Q5MINP PRN SL 08/18/25 23:00 Morphine Sulfate 2 mg Q30M PRN IV 08/18/25 23:00 Sodium Chloride 1,000 ml @ 65 mls/hr [id number] IV 08/19/25 13:45 08/19/25 13:45 65 MLS/HR Diagnostic Test (Pha) 1 strip ACHS 08/19/25 17:00 08/20/25 10:44 1 STRIP Insulin Human Regular ACHS SC 08/19/25 17:00 08/20/25 07:03 4 UNITS Dextrose 50 ml UD PRN IV 08/19/25 13:45 Laboratory Results Laboratory Tests 08/19/25 05:11 Microbiology Microbiology Date/Time Source Procedure Growth Status 08/19/25 02:10 Nose MRSA Screen - Final Complete Labs and/or images reviewed: Labs reviewed by me, Image(s) reviewed by me Assessment/Plan Assessment/Plan Impression: -abdominal pain, questionable peptic ulcer disease -seizure disorder -acute alcohol intake -diabetes mellitus -left diabetic foot wound -hypoglycemia -scoliosis Plan: Events: Patient had symptomatic hypoglycemia around midnight. Blood sugars improved with oral intake -continue regular insulin sliding scale, hold HS coverage -KUB : Noncontributory -advanced to consistent carbohydrate diet -continue PPI -regular insulin sliding scale -obtain home medications for reconciliation -reassess for discharge in a.m. Total time spent with patient discussing and formulating plan of care: 35 minutes. This medical document was created using an electronic medical record system with Dragon computerized dictation system. Although this document has been carefully reviewed, there may still be some phonetic and typographical errors. These areas are purely typographical due to imperfections of the software programs, and do not reflect any compromise in the patient's medical care. Plan discussed with: Patient, Other (RN) Date of Service: Aug 20, 2025 Billing Provider: MARY MULLER NP Common Visit Codes: [id number] INP/OBS CARE(HIGH) MARY MULLER NP Aug 20, 2025 13:47
[2025-08-20] MEDS: InsuLIN REG 1unit/0.01ml Soln (100units/ml) SC SCH (16:33)
[2025-08-21 01:00] VITALS: BP 176/83; PULSE 74; RESP 18; TEMP 98.4; O2SAT 98
[2025-08-21 05:00] VITALS: BP 186/94; PULSE 69; RESP 19; TEMP 98.3; O2SAT 98
[2025-08-21 08:00] VITALS: PULSE 76
[2025-08-21 09:00] VITALS: BP 153/87; PULSE 80; RESP 16; TEMP 97.3; O2SAT 99
[2025-08-21] MEDS ORDERED: PANT40TA2 PO (11:00)
--- NOTE | 2025-08-21 11:03 | DVHDS2 ---
Discharge Summary Date of Admission Aug 18, 2025 at 22:54 Date of Discharge: Aug 21, 2025 Admitting Diagnosis Intractable abdominal pain Labs/Diagnostic Data: Laboratory Results Test 08/21/25 06:15 08/19/25 05:11 08/18/25 20:08 POC Glucose 333 mg/dl (70-106) White Blood Count 6.3 10^3/uL (4.4-10.8) Red Blood Count 4.75 10^6/uL (4.0-5.20) Hemoglobin 13.9 g/dL (12.2-16.2) Hematocrit 41.1 % (36.0-46.0) Mean Corpuscular Volume 86.6 fL (80.0-100.0) Mean Corpuscular Hemoglobin 29.3 pg (28.0-32.0) Mean Corpuscular Hemoglobin Concent 33.9 g/dL (32.0-36.0) Red Cell Distribution Width 13.4 % (11.8-14.3) Platelet Count 213 10^3/uL (140-450) Mean Platelet Volume 7.9 fL (6.9-10.8) Neutrophils (%) (Auto) 50.4 % (37.0-80.0) Lymphocytes (%) (Auto) 39.6 % (10.0-50.0) Monocytes (%) (Auto) 8.8 % (0.0-12.0) Eosinophils (%) (Auto) 0.4 % (0.0-7.0) Basophils (%) (Auto) 0.8 % (0.0-2.0) Neutrophils # (Auto) 3.2 10 ^3/uL (1.6-8.6) Lymphocytes # (Auto) 2.5 10 ^3/uL (0.4-5.4) Monocytes # (Auto) 0.6 10 ^3/uL (0-1.3) Eosinophils # (Auto) 0 10 ^3/uL (0-0.8) Basophils # (Auto) 0.1 10 ^3/uL (0-0.2) Nucleated Red Blood Cells 0.1 % Sodium Level 135 mmol/L (136-145) Potassium Level 4.2 mmol/L (3.5-5.1) Chloride Level 96 mmol/L (98-107) Carbon Dioxide Level 29 mmol/L (20-31) Anion Gap 10 (5-15) Blood Urea Nitrogen 22 mg/dL (9-23) Creatinine 1.33 mg/dL (0.550-1.02) Glomerular Filtration Rate Calc 46 mL/min (>90) BUN/Creatinine Ratio 16.5 (10.0-20.0) Serum Glucose 72 mg/dL (74-106) Hemoglobin A1c 10.7 % A1C (<5.7) Calcium Level 9.3 mg/dL (8.7-10.4) Total Bilirubin 0.4 mg/dL (0.2-1.0) Aspartate Amino Transferase (AST) 19 U/L (13-40) Alanine Aminotransferase (ALT) 24 U/L (7-40) Alkaline Phosphatase 111 U/L (46-116) Total Protein 7.4 g/dL (5.7-8.2) Albumin 4.0 g/dL (3.2-4.8) Hepatitis B Surface Antigen Negative (Negative) Hepatitis C Antibody Negative (Negative) Lipase 67 U/L (12-53) Other Laboratory Tests 08/19/25 05:11 Brief Hx & Hospital Course: History of Present Illness The patient is a 60-year-old female with multiple past medical history including PUD, seizures, diabetes mellitus, and hypertension who presented to [facility] ED with complaint of acute abdominal pain for the past 2 days. Patient reports she has been experiencing abdominal pain rating 8/10 numeric scale, localized in right upper quadrant, associated with nausea. Patient states that she drank alcohol heavily on Tuesday worsening her condition. Patient was seen and evaluated in the ED, laboratory data shows WBC 7.0, platelets 243, sodium 128, potassium 4.1, BUN 28, creatinine 1.56, GFR 38, glucose 361, calcium 9.2, alkaline phos 130, AST 20, ALT 28, total bilirubin 0.6, lipase 67, blood pressure 162/83, heart rate 72, temperature 98.3 F, O2 saturation 97% on room air. Gallbladder ultrasound revealing hepatic steatosis, left renal cysts. Please see medication orders section in the computer. On my assessment, patient denied chest pain, no headache, dizziness, diaphoresis, shortness of breaths, no diarrhea, nausea, vomiting, fever, no chills. Patient was admitted for further evaluation and medical management. Course of hospitalization: Patient was placed on clear liquid diet, PPI, as well as continuation of regular insulin sliding scale. Patient's abdominal pain improved. Her diet was changed to consistent carbohydrate with no further bouts of abdominal pain or nausea or vomiting. KUB was ordered which was unremarkable. Patient did have a episode of hypoglycemia two evenings ago, symptomatic by patient. Patient's blood sugars has been improved, no longer having issues of hypoglycemia. 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 Patient will also be provided Protonix 40 mg p.o. daily for 30 days for probable peptic ulcer disease versus gastroenteritis as etiology for abdominal pain. Physical examination General: Alert and Oriented x3. No acute distress. Well-nourished. Eyes: EOMI. Anicteric. HENT: Moist mucous membranes. Lungs: Clear to auscultation bilaterally. No accessory muscle use. Cardiovascular: Regular rate and rhythm. No murmur. No JVD. Abdomen: Soft, non-tender and non-distended. No palpable masses. Extremities: No edema. Non-tender. Skin: No rashes or lesions. Warm. Neurologic: No focal neurological deficits. CN II-XII grossly intact, but not individually tested. Psychiatric: Cooperative. Appropriate mood and affect. Total time spent with patient discussing and formulating plan of care: 35 minutes. This medical document was created using an electronic medical record system with [employer] dictation system. Although this document has been carefully reviewed, there may still be some phonetic and typographical errors. These areas are purely typographical due to imperfections of the software programs, and do not reflect any compromise in the patient's medical care. Condition at Discharge: Guarded Final Diagnosis/Problems List Abdominal pain secondary to probable gastroenteritis Secondary diagnosis: -seizure disorder -acute alcohol intake -diabetes mellitus -left diabetic foot wound -hypoglycemia -scoliosis Discharge Disposition: Home Discharge Instruct/Medications Diet: Consistent carbohydrate Activity: No Restrictions, As Tolerated Follow Up/Referral: Follow up with PCP in 1-2 weeks Follow up with Podiatry at established appointment Medications: Protonix 40 mg p.o. daily times 30 days Continue all previous home medications. Recommend to follow up with the PCP to re-evaluate diabetic regimen Scheduled Amoxicillin & Pot Clavulanate (Amoxicillin/Potassium Cla), 875 MG PO BID Amoxicillin & Pot Clavulanate (Augmentin Tablet), 875 MG PO BID Fluoxetine HCl (Fluoxetine), Unknown Dose PO DAILY, (Reported) Fluoxetine Hcl (Fluoxetine Hcl), Unknown Dose PO DAILY, (Reported) Insulin Glargine (Basaglar Kwikpen), 20 UNIT SC HS Insulin Glargine-Yfgn (Insulin Glargine), 20 UNIT SC HS Insulin Lispro (Humalog Kwikpen), 6 UNIT SC AC Lovastatin (Lovastatin), 10 MG PO QDAC, (Reported) Lovastatin (Lovastatin), 10 MG PO DAILY Methocarbamol (Methocarbamol), Unknown Dose PO BID, (Reported) Pantoprazole Sodium Sesquihydr (Protonix), 40 MG PO DAILY Scheduled PRN Insulin Lispro (Humalog Kwikpen), 0 SC AC PRN Miscellaneous Medications Insulin Lispro (Insulin Lispro Kwikpen), 0 SC 36 Discharge Statement: "Patient was advised to return to the ER or call 911 if any headaches, dizziness, shortness of breath, chest pain, abdominal pain, bleeding, fevers, or worsening of medical condition. Patient was counseled about treatment plan, medications, possible side effects, patientverbalized understanding. All questions were answered to the best of my ability. This discharge took greater then 30 minutes in planning, reviewing documentation, counseling the patient, and discussing with other team members." ASSESSMENT ASSESSMENT Assessment Abdominal pain secondary to probable gastroenteritis Date of Service: Aug 21, 2025 Billing Provider: MARY MLULER NP Common Visit Codes: 29412-IIN/OBS DISCH DAY >30min MARY MULLER NP Aug 21, 2025 11:03
[2025-08-21 13:00] VITALS: BP 122/68; PULSE 66; RESP 17; TEMP 97.4; O2SAT 99
== END 2025-08-21 15:40 | disposition home or self-care (01) | DRG 249 ==
LOC: EDBD 19:32 → ER 19:34 → OVERFLOW 22:54 → TELE-WESTW 23:57
PROVIDERS: ADMIT Nurse Practitioner Acute Care; ATTEND Nurse Practitioner Acute Care
DX: K52.9 Noninfective gastroenteritis and colitis, unspecified (principal); K85.20 Alcohol induced acute pancreatitis without necrosis or infection; N17.9 Acute kidney failure, unspecified; E11.649 Type 2 diabetes mellitus with hypoglycemia without coma; I10 Essential (primary) hypertension; G40.909 Epilepsy, unspecified, not intractable, without status epilepticus; K76.0 Fatty (change of) liver, not elsewhere classified; M41.9 Scoliosis, unspecified; E11.621 Type 2 diabetes mellitus with foot ulcer; N28.1 Cyst of kidney, acquired; Z87.11 Personal history of peptic ulcer disease
CPT/HCPCS: 36415; 74018; 76705; 80053; 82962; 83036; 83690; 85025; 86803; 87081; 87340; 93005; G0378; J1815; J2405; J2470

== ENCOUNTER 2025-08-27 11:57 | Emergency (ER) | payer MEDICAID ==
[~2025-08-27] VITALS: Ht 149.9 cm; Wt 47.7 kg
[~2025-08-27 11:57] MED LIST changes: +FLUO20TA42 PO; +FLUO60TA7 PO; -METF-370 PO; +METH-1181 PO; +PANT40TA2 PO
--- NOTE | 2025-08-27 12:36 | DVH ---
CHEST RADIOGRAPH Indication: CP Technique: Single frontal view of the chest was obtained COMPARISON: XY CHEST PORTABLE on DOS: 05/19/25 FINDINGS: Lines and Tubes: None Lungs: Clear Pleura: No effusion. No pneumothorax. Cardiomediastinal contours: Unremarkable Bones: Unremarkable IMPRESSION: No acute disease.
[2025-08-27 12:46] LABS: Hematocrit 39.7 % (36.0-46.0); Hemoglobin 13.2 g/dL (12.2-16.2); Mean Corpuscular Hemoglobin 29.2 pg (28.0-32.0); Mean Corpuscular Volume 87.5 fL (80.0-100.0); Nucleated Red Blood Cells % 0.1 %
--- NOTE | 2025-08-27 12:51 | ED.PDOC ---
HPI Comments 60 y/o F, with PMHx of alcohol abuse, thyroid disease, seizures, DM, HTN, HLD, PUD, scoliosis presents to the ED for CC of worsening back pain, chest pain over the past few days. Patient states, she has been experiencing substernal non- radiating chest pain that is constant in nature with associated shortness of breath sudden onset, today (08/27/25). No pleuritic chest pain. Does admit that this is likely related to her scoliosis. Patient reports, being seen by for SS and being evaluated for her scoliosis, however, while she was there she mentioned that she was having chest pain so they recommended that she come into the emergency department for further management. Patient currently reports taking Methocarbamol and Pregabalin. Patient denies palpitations, headache, dizziness, or cough. Chief Complaint: Chest Pain Time Seen by MD: 12:40 Primary Care Provider: DR. CERDA Reviewed Notes: Nurses Notes, Medications, Allergies Allergies: Coded Allergies: NO KNOWN ALLERGIES (Unverified , 01/22/13) Home Meds Active Scripts Pantoprazole Sodium Sesquihydr (Protonix) 40 Mg Tab, 40 MG PO DAILY for 30 Days, #30 TAB Prov:MARY MULLER MATERIALS RECYCLER 08/21/25 Lovastatin (Lovastatin) 20 Mg Tab, 10 MG PO DAILY for 30 Days, #15 TAB 0 Refills Prov:DANI ETIENNE 05/25/25 Insulin Lispro (Insulin Lispro Kwikpen) 100 Unit/Ml Inj, 0 SC for 30 Days, #5 INJ 71-119 No additional insulin. 120-150 2 units. 151-200 4 units. 201-250 6 units. 251-300 8 units. 301-350 10 units. Greater than 351 12 units and call doctors office or come to emergency room. Prov:DANI ETIENNE 05/25/25 Insulin Glargine-Yfgn (Insulin Glargine) 100 Unit/Ml Inj, 20 UNIT SC HS for 30 Days, #5 INJ 0 Refills Prov:DANI ETIENNE 05/25/25 Amoxicillin & Pot Clavulanate (AUGMENTIN TABLET) 875 Mg Tb, 875 MG PO BID for 14 Days, #28 TAB 0 Refills Prov:DANI ETIENNE 05/25/25 Insulin Lispro (Humalog Kwikpen) 100 Unit/Ml Inj, 0 SC AC PRN for 30 Days, INJ 71-119 No additional insulin. 120-150 2 units. 151-200 4 units. 201-250 6 units. 251-300 8 units. 301-350 10 units. Greater than 351 12 units and call doctors office or come to emergency room. Prov:WES MARIE 05/24/25 Insulin Lispro (Humalog Kwikpen) 100 Unit/Ml Inj, 6 UNIT SC AC for 30 Days, INJ Prov:FRANKWES BUENROSTRO 05/24/25 Insulin Glargine (Basaglar Kwikpen) 100 Unit/Ml Inj, 20 UNIT SC HS for 30 Days, INJ Prov:FRANKWES BUENROSTRO 05/24/25 Amoxicillin & Pot Clavulanate (Amoxicillin/Potassium Cla) 875 Mg Tab, 875 MG PO BID for 14 Days, #28 TAB Prov:OCTAVIO MARIECARLOTA BUENROSTRO 05/24/25 Reported Medications Methocarbamol (Methocarbamol) 500 Mg Tab, PO BID, TAB 08/19/25 Fluoxetine Hcl (Fluoxetine Hcl) 20 Mg Tab, PO DAILY, #90 TAB 3 Refills 08/19/25 Fluoxetine HCl (Fluoxetine) 60 Mg Tab, PO DAILY, TAB 08/19/25 Lovastatin (Lovastatin) 10 Mg Tab, 10 MG PO QDAC 04/02/13 Information Source: Patient Mode of Arrival: walker Severity: Moderate Timing: Minutes Duration: Since onset Prehospital treatment: None Location: Substernal Radiation: No Radiation Quality: Pressure Onset: At Rest Cardiac Risk Factors: Hyperlipidemia, HTN, Diabetes Past Medical History PAST MEDICAL HISTORY: DM, High Lipids, HTN, Liver, PUD, Seizures, Thyroid Surgical History: , 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 History: No Pertinent KITCHEN SUPERVISOR History Family History Family History: No family hx of Cancer, No family hx of DM Social History Smoker: Non-Smoker Alcohol: Heavy Drugs: Denies Drug Use Lives In: Home Constitutional: denies: chills, diaphoresis, fatigue, fever, malaise, sweats, weakness, others EENTM: denies: blurred vision, double vision, ear bleeding, ear discharge, ear drainage, ear pain, ear ringing, eye pain, eye redness, hearing loss, mouth pain, mouth swelling, nasal discharge, nose bleeding, nose congestion, nose pain, photophobia, tearing, throat pain, throat swelling, voice changes, others Respiratory: reports: shortness of breath; denies: cough, hemoptysis, orthopnea, SOB at rest, SOB with excertion, stridor, wheezing, others Cardiovascular: reports: chest pain; denies: dizzy spells, diaphoresis, Dyspnea on exertion, edema, irregular heart beat, left arm pain, lightheadedness, palpitations, PND, syncope, others Gastrointestinal: denies: abdomen distended, abdominal pain, blood streaked bowels, constipated, diarrhea, dysphagia, difficulty swallowing, hematemesis, melena, nausea, poor appetite, poor fluid intake, rectal bleeding, rectal pain, vomiting, others Genitourinary: denies: abnormal vagina bleeding, burning, dyspareunia, dysuria, flank pain, frequency, hematuria, incontinence, pain, , vagina discharge, urgency, others Neurological: denies: dizziness, fainting, headache, left sided numbness, left sided weakness, numbness, paresthesia, pre-existing deficit, right sided numbness, right sided weakness, seizure, speech problems, tingling, tremors, weakness, others Musculoskeletal: denies: back pain, gout, joint pain, joint swelling, muscle pain, muscle stiffness, neck pain, others Integumetry: denies: bruises, change in color, change in hair/nails, dryness, laceration, lesions, lumps, rash, wounds, others Allergic/Immunocompromised: denies: Difficulty Healing, Frequent Infections, Hives, Itching, others Hematologic/Lymphatic: denies: anemia, blood clots, easy bleeding, easy bruising, swollen glands, others Endocrine: denies: excessive hunger, excessive sweating, excessive thirst, excessive urination, flushing, intolerance to cold, intolerance to heat, unexplained weight gain, unexplained weight loss, others Psychiatric: denies: anxiety, bipolar disorder, depression, hopeless, panic disorder, schizophrenia, sleepless, suicidal, others All Other Systems: Reviewed and Negative Physical Exam General Appearance: None, Normal HEENT: Normal ENT Inspection, Pharynx Normal Neck: Non-Tender, Normal, Normal Inspection Respiratory: No Accessory Muscle Use, No Respiratory Distress, Normal Breath Sounds Cardiovascular: No Edema, None, Normal Peripheral Pulses, Regular Rate/Rhythm Breast Exam: Deferred Gastrointestinal: Non Tender, Normal Bowel Sounds, Soft Genitalia: Deferred Pelvic: Deferred Rectal: Deferred Extremities: Normal inspection, Normal range of motion, Non-tender, No pedal edema Musculoskeletal : Extremity Location: Back (+scoliosis curvature with bilateral mid back paraspinal muscle ttp), Chest (+chest wall ttp) Apperance: Tenderness Neurologic: Alert, No Motor Deficits, No Sensory Deficits Cerebellar Function: Normal Reflexes: NOT DONE Skin: Normal Color Lymphatic: NOT DONE EKG EKG #1: Pulse Rate (adult): 67 [place]: Normal Cardiac Rhythm: NSR Block: None Hypertrophy: None ST: Normal EKG #2: Pulse Rate (adult): 63 [place]: Normal Cardiac Rhythm: NSR Block: None Hypertrophy: None ST: Normal Was a procedure done? Was a procedure done?: No CP Differential Dx Differential Diagnosis: Anxiety / Panic Attack Differential Diagnosis: Chest Wall Pain, Costochondritis, Esophageal reflux/spasm, Gastritis X-Ray, Labs, Meds, VS Vital Signs Date Time Temp Pulse Resp B/P (MAP) Pulse Ox O2 Delivery O2 Flow Rate FiO2 08/27/25 15:42 97.8 64 16 149/87 (107) 98 97.8 08/27/25 15:34 61 19 110/67 08/27/25 15:09 60 08/27/25 14:36 64 18 149/87 08/27/25 14:25 97.9 64 19 158/82 (107) 100 97.9 08/27/25 13:07 63 08/27/25 12:06 97.8 68 18 148/78 100 97.8 08/27/25 12:05 67 Lab Test 08/27/25 15:28 08/27/25 13:39 08/27/25 12:27 Range/Units Troponin I High Sensitivity 5 6 7 </=34 ng/L White Blood Count 5.4 4.4-10.8 10^3/uL Red Blood Count 4.54 4.0-5.20 10^6/uL Hemoglobin 13.2 12.2-16.2 g/dL Hematocrit 39.7 36.0-46.0 % Mean Corpuscular Volume 87.5 80.0-100.0 fL Mean Corpuscular Hemoglobin 29.2 28.0-32.0 pg Mean Corpuscular Hemoglobin Concent 33.4 32.0-36.0 g/dL Red Cell Distribution Width 14.2 11.8-14.3 % Platelet Count 181 140-450 10^3/uL Mean Platelet Volume 8.6 6.9-10.8 fL Neutrophils (%) (Auto) 63.3 37.0-80.0 % Lymphocytes (%) (Auto) 27.7 10.0-50.0 % Monocytes (%) (Auto) 7.1 0.0-12.0 % Eosinophils (%) (Auto) 1.5 0.0-7.0 % Basophils (%) (Auto) 0.4 0.0-2.0 % Neutrophils # (Auto) 3.4 1.6-8.6 10 ^3/uL Lymphocytes # (Auto) 1.5 0.4-5.4 10 ^3/uL Monocytes # (Auto) 0.4 0-1.3 10 ^3/uL Eosinophils # (Auto) 0.1 0-0.8 10 ^3/uL Basophils # (Auto) 0 0-0.2 10 ^3/uL Nucleated Red Blood Cells 0.1 % Sodium Level 135 L 136-145 mmol/L Potassium Level 5.1 3.5-5.1 mmol/L Chloride Level 93 L 98-107 mmol/L Carbon Dioxide Level 31 20-31 mmol/L Anion Gap 11 5-15 Blood Urea Nitrogen 14 9-23 mg/dL Creatinine 1.15 H 0.550-1.02 mg/dL Glomerular Filtration Rate Calc 55 >90 mL/min BUN/Creatinine Ratio 12.2 10.0-20.0 Serum Glucose 356 H 74-106 mg/dL Calcium Level 9.5 8.7-10.4 mg/dL B-Type Natriuretic Peptide 253.54 0-100 pg/mL Current Medications Medications (Trade) Dose Ordered Sig/Sean Route Start Time Stop Time Status Last Admin Morphine Sulfate 4 mg ONCE ONCE IM 08/27/25 12:45 08/27/25 12:46 DC 08/27/25 14:[address] [address] Ph: [phone] DIAGNOSTIC IMAGING Diagnostic Imaging Report : [id number] Signed PATIENT: DEB VAZQUEZ DACCT: [id number] UNIT: [id number] : 1965 LOC: ER ROOM / BED: / AGE / SEX: 60 / F ADM STATUS: REG ER SERVICE 1215 ORDERING PHYSICIAN: ER PROCEDURE(s): CXR1 - CHEST XRAY 1 VIEW REASON: CP ORDER NUMBER(s): [id number], ACCESSION NUMBER(s): [id number] CHEST RADIOGRAPH Indication: CP Technique: Single frontal view of the chest was obtained COMPARISON: XY CHEST PORTABLE on DOS: 05/19/25 FINDINGS: Lines and Tubes: None Lungs: Clear Pleura: No effusion. No pneumothorax. Cardiomediastinal contours: Unremarkable Bones: Unremarkable IMPRESSION: No acute disease. ATED BY: JASON REICH MD DICTATED DATE/TIME: 08/27/25 123 SIGNED BY: JASON REICH MD SIGNED DATE/TIME: 08/27/251232 CC: Time of 1ST Reevaluation: 13:10 Reevaluation 1ST: Unchanged Time of 2ND Reevaluation: 16:30 Reevaluation 2ND: Improved Patient Education/Counseling: Diagnosis, Treatment Family Education/Counseling: Diagnosis, Treatment SEPSIS Sepsis Screen Date sepsis recognized/suspect: Aug 27, 2025 Time Sepsis recognized/suspect: 1211 Recent Procedure: No On Antibiotic Therapy: No Respiratory Rate >20: No Heart Rate >90: No Temp<36 C (96.8 F) or >38.3 C: No SBP <90 or MAP <65 mmHG: No New Acute Mental Status Change: No Is the patient on CPAP, BIPAP,: No Physician Orders Electrocardigram (08/27/25 12:01) Electrocardigram (08/27/25 13:01) Electrocardigram (08/27/25 15:01) Test, Urine (08/27/25 12:01) Chest Xray 1 View (08/27/25 12:15) Vital Signs Date Time Temp Pulse Resp B/P (MAP) Pulse Ox O2 Delivery O2 Flow Rate FiO2 08/27/25 15:42 97.8 64 16 149/87 (107) 98 97.8 08/27/25 15:34 61 19 110/67 08/27/25 15:09 60 08/27/25 14:36 64 18 149/87 08/27/25 14:25 97.9 64 19 158/82 (107) 100 97.9 08/27/25 13:07 63 08/27/25 12:06 97.8 68 18 148/78 100 97.8 08/27/25 12:05 67 Laboratory Tests Test 08/27/25 12:27 White Blood Count 5.4 10^3/uL (4.4-10.8) Medications Medications Dose Ordered Sig/Sean Route Start Time Stop Time Status Last Admin Dose Admin Morphine Sulfate 4 mg ONCE ONCE IM 08/27/25 12:45 08/27/25 12:46 DC 08/27/25 14:36 Departure 1 Departure Time of Disposition: 16:31 (60 y/o F, with PMHx of alcohol abuse, thyroid disease, seizures, DM, HTN, HLD, PUD, scoliosis presents to the ED for CC of worsening back pain, chest pain over the past few days. Patient with chronic pain related to scoliosis, now having radiation of discomfort around the back into her chest. Seems most likely consistent with musculoskeletal chest pain. However, given the patient's report of chest discomfort consider possible ACS, patient has a heart score of 2. Serial troponins obtained remain negative. Serial EKGs also within normal limits. Chest x-ray was performed which shows no evidence of any acute cardiopulmonary process. Although the patient really was reporting shortness of breath, has normal work of breathing, normal oxygenation. No recent infectious symptoms, no focal consolidation on chest x-ray to suggest a bacterial pneumonia. Patient with new increased lower extremity edema, BNP is within normal limits, does not seem consistent with new onset heart failure. CBC with no evidence of critical leukocytosis or significant anemia. Metabolic panel is notable for hyperglycemia, however, normal bicarb, no findings to suggest DKA. Patient given a 1 time dose of intramuscular morphine. Reporting improvement of discomfort. She is stable for discharge for further outpatient management by her primary care doctor.) Impression: Primary Impression: Musculoskeletal chest pain Additional Impressions: Mid back pain Scoliosis Disposition: HOME / SELF CARE / HOMELESS Condition: Stable Critical Care Note Critical Care Time?: No Stability Stability form required: No Heart Score Heart Score: Heart Score Response (Comments) Value History Slightly Suspicious 0 EKG Normal 0 Age 45-64 1 Risk Factors 1 or 2 risk factors 1 Troponin Normal limit 0 Total 2 I personally scribed for ELISHA CARDENAS MD ([email or web address]) on 08/27/25 at 12:51. Electronically submitted by Kacie Agustin ([email or web address]). I personally scribed for ELISHA CARDENAS MD ([email or web address]) on 08/27/25 at 12:52. Electronically submitted by Kacie Agustin ([email or web address]). ELISHA CARDENAS MD Aug 27, 2025 12:51
[2025-08-27 12:55] LABS: Potassium 5.1 mmol/L (3.5-5.1)
[2025-08-27 12:56] LABS: Anion Gap 11 (5-15); Calcium 9.5 mg/dL (8.7-10.4); Carbon Dioxide 31 mmol/L (20-31)
[2025-08-27 13:01] LABS: BUN/Creatinine Ratio 12.2 (10.0-20.0); Blood Urea Nitrogen 14 mg/dL (9-23)
[2025-08-27 13:02] LABS: Chloride 93 mmol/L (98-107); Glucose 356 mg/dL (74-106); Sodium 135 mmol/L (136-145)
[2025-08-27] MEDS: MORPHINE SULFATE 4 MG/ML SYR/VIAL IM ONE (14:36)
[2025-08-27 17:39] VITALS: BP 121/75; PULSE 60; RESP 16; TEMP 98; O2SAT 100
--- NOTE | 2025-08-28 10:02 | ECG ---
[facility] Test Date: 2025-08-27 Test Time: 12:05:01 Pat Name: DEB BUCKLEY Department: Room: Gender: F Licensed Social Worker: SERA : 1965 Requested By: EMERGENCY EMERGENCY Order Number: [id number] Reading MD: Brian Moctezuma Measurements Intervals [place] Rate: 68 P: 95 VA: 119 QRS: 92 QRSD: 133 T: 60 QT: 437 QTc: 465 Interpretive Statements Sinus rhythm Borderline short VA interval Nonspecific intraventricular conduction delay Electronically Signed On 08-30-2025 15:41:55 PST by Brian Moctezuma Please click the below link to view image of tracing.
--- NOTE | 2025-08-28 10:02 | ECG ---
[facility] Test Date: 2025-08-27 Test Time: 12:05:54 Pat Name: DEB BUCKLEY Department: Room: Gender: F Geospatial Technologist: SERA : 1965 Requested By: EMERGENCY EMERGENCY Order Number: [id number] Reading MD: Brian Moctezuma Measurements Intervals [place] Rate: 67 P: 76 HI: 114 QRS: 89 QRSD: 73 T: 61 QT: 405 QTc: 428 Interpretive Statements Sinus rhythm Borderline short HI interval Electronically Signed On 08-30-2025 15:41:56 PST by Brian Moctezuma Please click the below link to view image of tracing.
--- NOTE | 2025-08-28 12:06 | ECG ---
[facility] Test Date: 2025-08-27 Test Time: 15:09:13 Pat Name: DEB BUCKLEY Department: Room: Gender: F Seaming Machine Operator: ELZA : 1965 Requested By: EMERGENCY EMERGENCY Order Number: [id number] Reading MD: Brian Moctezuma Measurements Intervals [place] Rate: 60 P: 84 IA: 124 QRS: 88 QRSD: 74 T: 61 QT: 413 QTc: 413 Interpretive Statements Sinus rhythm Electronically Signed On 08-30-2025 15:42:03 PST by Brian Moctezuma Please click the below link to view image of tracing.
== END 2025-08-27 17:48 | disposition home or self-care (01) ==
LOC: ER 11:57
DX: R07.89 Other chest pain (principal); M54.6 Pain in thoracic spine; M41.9 Scoliosis, unspecified; I10 Essential (primary) hypertension; E11.9 Type 2 diabetes mellitus without complications; E78.5 Hyperlipidemia, unspecified; E03.9 Hypothyroidism, unspecified; Z32.00 Encounter for pregnancy test, result unknown; Z79.899 Other long term (current) drug therapy; Z87.11 Personal history of peptic ulcer disease; Z98.890 Other specified postprocedural states
CPT/HCPCS: 36415; 71045; 80048; 83880; 84484; 85025; 93005; 96372; 99285; J2270